=== PATIENT | male | born 1990 | race Caucasian/White ===

== ENCOUNTER 2020-04-09 10:15 | Emergency (ER) | payer SELFPAY ==
[2020-04-09] MEDS ORDERED: Ketorolac 60 MG/2 ML SDV IM ONE (10:29)
[2020-04-09] MEDS ORDERED: Lidocaine 2% Viscous Solution 15 ML Cup PO ONE (10:30)
[2020-04-09] MEDS ORDERED: Benzocaine 20% Topical Spray UD MUCMEM ONE (10:30)
--- NOTE | 2020-04-09 10:38 | EDM.PDOC ---
ED HPI GENERAL MEDICAL PROBLEM - General Chief Complaint: General Stated Complaint: TOOTH ABSCESS Time Seen by Provider: 04/09/20 10:23 Source of Information: Reports: Patient History Limitations: Reports: No Limitations - History of Present Illness INITIAL COMMENTS - FREE TEXT/NARRATIVE: Presents reporting dental pain. Due to financial constraints he has been unable to get in for necessary dental work for his dentition which is in very poor repair. He is now of left lower quadrant dental pain and swelling. Denies fever, chills, constitutional symptoms. Is been eating and drinking. dental Pain Score (Numeric/FACES): 8 - Related Data Allergies Allergy/AdvReac Type Severity Reaction Status Date / Time No Known Allergies Allergy Verified 04/09/20 10:19 Home Meds: Home Meds Clindamycin HCl 1 cap PO TID #30 capsule 04/09/20 [Rx] Past Medical History - Past Health History Medical/Surgical History: Denies Medical/Surgical History Musculoskeletal History: Reports: Other (See Below) Other Musculoskeletal History: Tendonitis, Bulging Disk, Pinched Nerve in Neck - Infectious Disease History Infectious Disease History: Reports: Chicken Pox - Past Surgical History HEENT Surgical History: Reports: Oral Surgery Social & Family History - Family History Family Medical History: Noncontributory - Tobacco Use Smoking Status *Q: Current Every Day Smoker Years of Tobacco use: 15 Packs/Tins Daily: 1 - Alcohol Use Days Per Week of Alcohol Use: 7 Number of Drinks Per Day: 4 Total Drinks Per Week: 28 - Recreational Drug Use Recreational Drug Use: No ED ROS GENERAL - Review of Systems Review Of Systems: Comprehensive ROS is negative, except as noted in HPI. ED EXAM, GENERAL - Physical Exam Exam: See Below Exam Limited By: No Limitations General Appearance: Alert, No Apparent Distress Ears: Normal External Exam Nose: Normal Inspection Throat/Mouth: Other (Patient with all teeth rotted to the gums, blackened, some missing cracked and broken. Left lower quadrant jaw swelling.) Head: Atraumatic, Normocephalic Neck: Normal Inspection. No: Lymphadenopathy (L), Lymphadenopathy (R) Respiratory/Chest: No Respiratory Distress, Lungs Clear, Normal Breath Sounds Cardiovascular: Regular Rate, Rhythm, No Murmur Extremities: Normal Inspection Neurological: Alert, Oriented Psychiatric: Normal Affect, Normal Mood Skin Exam: Warm, Dry, Intact, Normal Color, No Rash Course - Vital Signs Last Recorded V/S: Last Vital Signs Temp 36.4 C 04/09/20 10:17 Pulse 104 H 04/09/20 10:17 Resp 18 04/09/20 10:17 BP 151/101 H 04/09/20 10:17 Pulse Ox 97 04/09/20 10:17 - Orders/Labs/Meds Meds: Medications Discontinued Medications Generic Name Dose Route Start Last Admin Trade Name Torsten PRN Reason Stop Dose Admin Benzocaine 2 each 04/09/20 10:30 Hurricaine One 20% MUCMEM 04/09/20 10:31 ONETIME ONE Ketorolac Tromethamine 60 mg 04/09/20 10:29 Toradol IM 04/09/20 10:30 ONETIME ONE Lidocaine HCl 15 ml 04/09/20 10:30 Xylocaine 2% Viscous PO 04/09/20 10:31 ONETIME ONE Departure - Departure Time of Disposition: 10:35 Disposition: Home, Self-Care 01 Condition: Good Clinical Impression: Dental abscess - Discharge Information Prescriptions: Clindamycin HCl 1 cap PO TID #30 capsule Additional Instructions: The following information is given to patients seen in the emergency departm ent who are being discharged to home. This information is to outline your options for follow-up care. We provide all patients seen in our emergency department with a follow-up referral. The need for follow-up, as well as the timing and circumstances, are variable depending upon the specifics of your emergency department visit. If you don't have a primary care physician on staff, we will provide you with a referral. We always advise you to contact your personal physician following an emergency department visit to inform them of the circumstance of the visit and for follow-up with them and/or the need for any referrals to a consulting specialist. The emergency department will also refer you to a specialist when appropriate. This referral assures that you have the opportunity for follow-up care with a specialist. All of these measure are taken in an effort to provide you with optimal care, which includes your follow-up. Under all circumstances we always encourage you to contact your private physician who remains a resource for coordinating your care. When calling for follow-up care, please make the office aware that this follow-up is from your recent emergency room visit. If for any reason you are refused follow-up, please contact the [facility] Emergency Department at and asked to speak to the emergency department charge nurse. 1. Follow-up with dentist as soon as possible for definitive management 2. Dental balls: Place 1 ball over affected tooth and gently bite down for 10 minutes every 2 hours 3. Aleve 2 tabs a.m. and p.m. or ibuprofen 2-3 tabs 3 times daily as needed for pain 4. Clindamycin 3 times daily start immediately after picking up from the pharmacy Sepsis Event Note (ED) - Evaluation Sepsis Screening Result: No Definite Risk - Focused Exam Vital Signs: Vital Signs Temp Pulse Resp BP Pulse Ox 04/09/20 10:17 36.4 C 104 H 18 151/101 H 97
== END 2020-04-09 11:00 | disposition home or self-care (01) ==
LOC: MW.ED 10:15
DX: K04.7 Periapical abscess without sinus (principal); F17.210 Nicotine dependence, cigarettes, uncomplicated
CPT/HCPCS: 96372; 99283; A9270; J1885; 99282

== ENCOUNTER 2020-12-02 04:36 | Inpatient (IN) | payer SELFPAY ==
--- NOTE | 2020-12-02 04:49 | EDM.PDOC ---
ED HPI GENERAL MEDICAL PROBLEM - General Stated Complaint: CHEST PAIN Time Seen by Provider: 12/02/20 04:39 - History of Present Illness INITIAL COMMENTS - FREE TEXT/NARRATIVE: History of present illness: [] This 30-year-old male who is bothered by chronic indigestion and takes Prilosec almost every day reports that suddenly last night he had a severe sharp pain in his abdomen that radiates up into his anterior chest. The pain is associated with nausea and vomiting. He had 3 loose stools that are dark. The vomitus was yellow liquid. Patient's pain comes and goes. It is 10 out of 10 in severity at rest and then gets worse intermittently. Nothing makes it better or worse. It is associated with mild diaphoresis nausea and vomiting. The patient prefers not to get narcotic medicine because after neck injuries he actually had to work hard to get himself off of the painkillers. Review of systems: As per history of present illness and below otherwise all systems reviewed and negative. Past medical history: As per history of present illness and as reviewed below otherwise noncontributory. Surgical history: As per history of present illness and as reviewed below otherwise noncontributory. Social history: No reported history of drug or alcohol abuse. Family history: As per history of present illness and as reviewed below otherwise noncontributory. Physical exam: Constitutional - well developed, well-nourished and in no acute distress HEENT - normocephalic, no evidence of trauma - external nose and mouth normal - no mass in neck and no JVD - mucosae moist EYES - full EOM, PERRL, no icterus - no evidence of inflammation, injection, or drainage Respiratory - no respiratory distress, equal bilateral expansion, lungs clear to auscultation and no abnormal lung sounds Cardiovascular - Regular Rhythm with S1 and S2 appreciated and no murmur, gallop or rub. GI - abdomen soft without distension or organomegaly - normal bowel sounds - tender and guards in epigastrium but no rebound Musculoskeletal no gross deformity of long bones or joints - no tenderness, swelling or edema Neurologic - Alert and oriented times four - CN II-XII grossly intact - motor sensory and coordination symmetrically normal Psychiatric - appropriate mood and affect with normal thought content Hematologic - No petechiae or purpura - mucosa appropriate color and sclera not pale - normal nail bed color and refill Integument - no rash or evidence of trauma - normal turgor Diagnostics: [] Therapeutics: [] Impression: [] Plan: [] Definitive disposition and diagnosis as appropriate pending reevaluation and review of above. Abdominal Pain Score (Numeric/FACES): 8 - Related Data Allergies Allergy/AdvReac Type Severity Reaction Status Date / Time No Known Allergies Allergy Verified 12/02/20 05:32 Home Meds: Home Meds . [No Known Home Meds] 12/02/20 [History] Past Medical History - Past Health History Medical/Surgical History: Denies Medical/Surgical History Musculoskeletal History: Reports: Other (See Below) Other Musculoskeletal History: Tendonitis, Bulging Disk, Pinched Nerve in Neck - Infectious Disease History Infectious Disease History: Reports: Chicken Pox - Past Surgical History HEENT Surgical History: Reports: Oral Surgery Social & Family History - Family History Family Medical History: No Pertinent Family History ED ROS GENERAL - Review of Systems Review Of Systems: Comprehensive ROS is negative, except as noted in HPI. ED EXAM, GENERAL - Physical Exam Exam: See Below Free Text/Narrative:: My physical exam is in the HPI #1 Interpretation EKG Interpretation Comments: EKG sinus tachycardia heart rate 105. Nonspecific ST changes. [place] is 83 [place] 159 9 prolonged QT interval at 484. No prior for comparison impression no obvious injury Course - Vital Signs Text/Narrative:: 5:53 AM the patient suffering a great deal. He has severe pain in the epigastrium. Labs indicate possible common duct obstruction. 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 The patient listen me talk about possible platelet inhibition with Toradol and because he is in such severe pain and has been off of painkillers long that he will not have a severe physical dependence he decided to allow me to give him narcotic pain medicine while we finish the evaluation and decide if he can be admitted here transferred to [place] for ERCP. Case discussed with Dr. Edwards and patient admitted Last Recorded V/S: Last Vital Signs Temp 36.7 C 12/02/20 04:40 Pulse 95 12/02/20 05:55 Resp 18 12/02/20 05:55 BP 158/109 H 12/02/20 05:55 Pulse Ox 97 12/02/20 05:55 - Orders/Labs/Meds Orders: Active Orders 24 hr Category Date Time Status EKG Documentation Completion [RC] AM Care 12/02/20 04:57 Active Abdomen Ltd [US] Stat Exams 12/02/20 05:39 Ordered CORONAVIRUS COVID-19 NIK [MOLEC] Stat Lab 12/02/20 06:08 Ordered CULTURE BLOOD [BC] Stat Lab 12/02/20 05:55 Received CULTURE BLOOD [BC] Stat Lab 12/02/20 06:05 Received Sodium Chloride 0.9% [Normal Saline] 1,000 ml Med 12/02/20 06:43 Ordered IV .Bolus Sodium Chloride 0.9% [Saline Flush] Med 12/02/20 04:57 Active 10 ml FLUSH ASDIRECTED PRN Sodium Chloride 0.9% [Saline Flush] Med 12/02/20 04:57 Active 2.5 ml FLUSH ASDIRECTED PRN Blood Culture x2 Reflex Set [OM.PC] Stat Oth 12/02/20 05:41 Ordered Saline Lock Insert [OM.PC] Stat Oth 12/02/20 04:57 Ordered Medication Orders Sodium Chloride (Normal Saline) 1,000 mls @ 1,000 mls/hr IV .Bolus ONE Stop: 12/02/20 07:42 Sodium Chloride (Sodium Chloride 0.9% 10 Ml Syringe) 10 ml FLUSH ASDIRECTED PRN PRN Reason: Keep Vein Open Sodium Chloride (Sodium Chloride 0.9% 2.5 Ml Syringe) 2.5 ml FLUSH ASDIRECTED PRN PRN Reason: Keep Vein Open Labs: Laboratory Tests 12/02/20 12/02/20 12/02/20 Range/Units 04:45 04:45 06:05 WBC 19.32 H (4.0-11.0) K/uL RBC 5.13 (4.50-5.90) M/uL Hgb 19.1 H (13.0-17.0) g/dL Hct 53.3 H (38.0-50.0) % MCV 103.9 H (80.0-98.0) fL MCH 37.2 H (27.0-32.0) pg MCHC 35.8 (31.0-37.0) g/dL RDW Std Deviation 55.9 (28.0-62.0) fl RDW Coeff of Kristina 15 (11.0-15.0) % Plt Count 311 (150-400) K/uL MPV 10.80 (7.40-12.00) fL Neut % (Auto) 86.9 H (48.0-80.0) % Lymph % (Auto) 7.0 L (16.0-40.0) % [place] % (Auto) 5.7 (0.0-15.0) % Eos % (Auto) 0.1 (0.0-7.0) % Baso % (Auto) 0.3 (0.0-1.5) % Neut # (Auto) 16.8 H (1.4-5.7) K/uL Lymph # (Auto) 1.4 (0.6-2.4) K/uL [place] # (Auto) 1.1 H (0.0-0.8) K/uL Eos # (Auto) 0.0 (0.0-0.7) K/uL Baso # (Auto) 0.1 (0.0-0.1) K/uL Nucleated RBC % 0.0 /100WBC Nucleated RBCs # 0 K/uL Lactate 3.6 H* (0.20-2.00) mmol/L Sodium 135 L (136-148) mmol/L Potassium 4.0 (3.5-5.1) mmol/L Chloride 96 L (98-107) mmol/L Carbon Dioxide 25.4 (21.0-32.0) mmol/L BUN 5 L (7.0-18.0) mg/dL Creatinine 1.3 (0.8-1.3) mg/dL Est Cr Clr Drug Dosing TNP Estimated GFR (MDRD) > 60.0 ml/min Glucose 171 H (74-106) mg/dL Calcium 8.8 (8.5-10.1) mg/dL Total Bilirubin 1.8 H (0.2-1.0) mg/dL AST 102 H (15-37) IU/L ALT 107 H (14-63) IU/L Alkaline Phosphatase 115 (46-116) U/L Troponin I < 0.050 (0.000-0.056) ng/mL Total Protein 8.0 (6.4-8.2) g/dL Albumin 3.9 (3.4-5.0) g/dL Globulin 4.1 H (2.6-4.0) g/dL Albumin/Globulin Ratio 1.0 (0.9-1.6) Lipase 5193 H (73-393) U/L Meds: Medications Generic Name Dose Route Start Last Admin Trade Name Freq PRN Reason Stop Dose Admin Sodium Chloride 1,000 mls @ 1,000 mls/hr 12/02/20 06:43 Normal Saline IV 12/02/20 07:42 .Bolus ONE Sodium Chloride 10 ml 12/02/20 04:57 Sodium Chloride 0.9% 10 Ml Syringe FLUSH ASDIRECTED PRN Keep Vein Open Sodium Chloride 2.5 ml 12/02/20 04:57 Sodium Chloride 0.9% 2.5 Ml Syringe FLUSH ASDIRECTED PRN Keep Vein Open Discontinued Medications Generic Name Dose Route Start Last Admin Trade Name Freq PRN Reason Stop Dose Admin Hydromorphone HCl 1 mg 12/02/20 05:52 12/02/20 05:57 Hydromorphone 1 Mg/Ml Syringe IVPUSH 12/02/20 05:53 1 mg ONETIME ONE Administration Pantoprazole Sodium 40 mg/ 10 mls @ 300 mls/hr 12/02/20 04:57 12/02/20 05:06 Sodium Chloride IV 12/02/20 04:58 300 mls/hr NOW ONE Administration Cefoxitin Sodium 2 gm/ Sodium 100 mls @ 200 mls/hr 12/02/20 05:41 12/02/20 05:46 Chloride IV 12/02/20 06:10 Not Given ONETIME ONE Sodium Chloride 1,000 mls @ 1,000 mls/hr 12/02/20 05:42 12/02/20 05:53 Normal Saline IV 12/02/20 06:41 1,000 mls/hr .Bolus ONE Administration Cefoxitin Sodium 2 gm/ Premix 50 mls @ 100 mls/hr 12/02/20 05:46 12/02/20 05:54 IV 12/02/20 06:15 100 mls/hr ONETIME ONE Administration Ondansetron HCl 4 mg 12/02/20 04:57 12/02/20 05:05 Ondansetron 4 Mg/2 Ml Sdv IVPUSH 12/02/20 04:58 4 mg ONETIME ONE Administration Ondansetron HCl 4 mg 12/02/20 05:52 Ondansetron 4 Mg/2 Ml Sdv IVPUSH 12/02/20 05:53 ONETIME ONE Departure - Departure Time of Disposition: 06:46 Disposition: Admitted As Inpatient 64 Condition: Fair Clinical Impression: Acute pancreatitis - Discharge Information Referrals: PCP,None [Primary Care Provider] - Sepsis Event Note (ED) - Focused Exam Vital Signs: Vital Signs Temp Pulse Resp BP Pulse Ox 12/02/20 05:55 95 18 158/109 H 97 12/02/20 04:40 36.7 C 113 H 18 159/113 H 97 - My Orders Last 24 Hours: My Active Orders 12/02/20 04:57 EKG Documentation Completion [RC] AM Sodium Chloride 0.9% [Saline Flush] 10 ml FLUSH ASDIRECTED PRN Sodium Chloride 0.9% [Saline Flush] 2.5 ml FLUSH ASDIRECTED PRN Saline Lock Insert [OM.PC] Stat 12/02/20 05:39 Abdomen Ltd [US] Stat 12/02/20 05:41 Blood Culture x2 Reflex Set [OM.PC] Stat 12/02/20 05:55 CULTURE BLOOD [BC] Stat 12/02/20 06:05 CULTURE BLOOD [BC] Stat 12/02/20 06:08 CORONAVIRUS COVID-19 NIK [MOLEC] Stat 12/02/20 06:43 Sodium Chloride 0.9% [Normal Saline] 1,000 ml IV .Bolus - Assessment/Plan Last 24 Hours: My Active Orders 12/02/20 04:57 EKG Documentation Completion [RC] AM Sodium Chloride 0.9% [Saline Flush] 10 ml FLUSH ASDIRECTED PRN Sodium Chloride 0.9% [Saline Flush] 2.5 ml FLUSH ASDIRECTED PRN Saline Lock Insert [OM.PC] Stat 12/02/20 05:39 Abdomen Ltd [US] Stat 12/02/20 05:41 Blood Culture x2 Reflex Set [OM.PC] Stat 12/02/20 05:55 CULTURE BLOOD [BC] Stat 12/02/20 06:05 CULTURE BLOOD [BC] Stat 12/02/20 06:08 CORONAVIRUS COVID-19 NIK [MOLEC] Stat 12/02/20 06:43 Sodium Chloride 0.9% [Normal Saline] 1,000 ml IV .Bolus
[2020-12-02] MEDS ORDERED: Sodium Chloride 0.9% 10 ML Syringe FLUSH PRN (04:57)
[2020-12-02] MEDS ORDERED: Pantoprazole 40 MG in Sodium Chloride 0.9% 10 ML IV ONE (04:57)
[2020-12-02] MEDS ORDERED: Sodium Chloride 0.9% 2.5 ML Syringe FLUSH PRN (04:57)
[2020-12-02] MEDS ORDERED: Ondansetron 4 MG/2 ML SDV IVPUSH ONE ×2 (04:57→05:52)
[2020-12-02 05:25] LABS: BLOOD UREA NITROGEN,BUN 5 mg/dL (7.0-18.0); CARBON DIOXIDE,CO2 25.4 mmol/L (21.0-32.0); CHLORIDE,CL 96 mmol/L (98-107); GLUCOSE RANDOM 171 mg/dL (74-106); SODIUM,NA 135 mmol/L (136-148)
[2020-12-02 05:38] LABS: LIPASE 5193 U/L (73-393)
[2020-12-02] MEDS ORDERED: cefOXitin 2 GM in Sodium Chloride 0.9% 100 ML IV ONE (05:41)
[2020-12-02] MEDS ORDERED: Sodium Chloride 0.9% 1,000 ML IV ONE ×2 (05:42→06:43)
[2020-12-02] MEDS ORDERED: cefOXitin 2 GM in Premix Bag 1 BAG IV ONE (05:46)
[2020-12-02] MEDS ORDERED: HYDROmorphone 1 MG/ML Syringe IVPUSH ONE ×3 (05:52→13:35)
--- NOTE | 2020-12-02 06:38 | CR ---
Indication: Epigastric and chest pain Technique: Chest 1 view Comparison: None Findings/Impression: Cardiovascular and mediastinum: Heart size and vasculature are normal in caliber and appearance. Mediastinum is within normal limits. Lungs and pleural space: Lungs are clear. No sign of infiltrate or mass. No sign of pleural effusion. No pneumothorax. Bones and soft tissues: No significant findings. Dictated by Lance Jenkins MD @ Dec 02 2020 6:34AM Signed by Dr. Lance Jenkins @ Dec 02 2020 6:36AM
--- NOTE | 2020-12-02 07:26 | US ---
INDICATION: Elevated liver function tests and lipase with pain. TECHNIQUE: Ultrasound abdomen limited. Sonographic images of the right upper quadrant were obtained using ballesteros-scale and color Doppler images. COMPARISON: None FINDINGS: Liver: Normal in size. Diffusely echogenic consistent with fatty infiltration. Probable area of focal fatty sparing in the left lobe. No masses. No intrahepatic biliary dilatation. Gallbladder: No stones or sludge. Normal wall thickness. No pericholecystic fluid. Common bile duct: 5 mm. Pancreas: Not well visualized secondary to bowel gas. Right kidney: Normal in size. Normal echotexture and cortex. No suspicious masses, stones, or hydronephrosis. Vasculature: Proximal abdominal aorta and IVC are normal. IMPRESSION: Hepatic steatosis is present. Pancreas is not visualized. Remainder of the exam is unremarkable. Dictated by Javier Friedman MD @ Dec 02 2020 7:22AM Signed by Dr. Javier Friedman @ Dec 02 2020 7:25AM
[2020-12-02] MEDS ORDERED: Iopamidol 755 MG/ML 500 ML Multipack Bottle IVPUSH STA (07:45)
--- NOTE | 2020-12-02 08:23 | CT ---
INDICATION: Acute pancreatitis. TECHNIQUE: CT abdomen and pelvis acquired with 100 cc Isovue 370 IV contrast. COMPARISON: None. FINDINGS: Lower chest: Unremarkable. Liver: Enlarged measuring up to 26 cm in greatest dimension. Diffuse severe fatty infiltration. No focal lesion. Gallbladder and bile ducts: Unremarkable. No stones or inflammation. No biliary dilatation. Pancreas: Moderate to severe peripancreatic edema/inflammation. No sign of abscess or pseudocyst. No focal pancreatic lesion. Spleen: Unremarkable. Normal in size. No masses. Adrenal glands: Unremarkable. No nodules. Kidneys: Unremarkable. No masses, stones, or hydronephrosis. GI tract: Unremarkable. Normal in caliber. No sign of mass or inflammation. Normal appendix. Vasculature: Unremarkable. Mesenteric arteries are patent. Lymph nodes: No lymphadenopathy. Omentum/Peritoneum/Abdominal Wall: Unremarkable. No sign of mass or infiltration. No free air or significant free fluid. Pelvis: Mild free fluid. No free air. Bones: Unremarkable for age. IMPRESSION: 1. Acute pancreatitis with moderate to severe peripancreatic edema/inflammation. No other complications. 2. Severe hepatomegaly and hepatic steatosis. 3. Unremarkable gallbladder and biliary tree. 4. Remainder of the exam is unremarkable. Please note that all CT scans at this facility use dose modulation, iterative reconstruction, and/or weight-based dosing when appropriate to reduce radiation dose to as low as reasonably achievable. Dictated by Javier Friedman MD @ Dec 02 2020 8:13AM Signed by Dr. Javier Friedman @ Dec 02 2020 8:20AM
[2020-12-02] MEDS ORDERED: Lactated Ringers 1,000 ML IV ONE ×2 (09:46→10:10)
--- NOTE | 2020-12-02 09:46 | PCM.HP.2 ---
H&P History of Present Illness - General Date of Service: 12/02/20 Admit Problem/Dx: Admission Diagnosis/Problem Admission Diagnosis/Problem Pancreatitis Source of Information: Patient History Limitations: Reports: No Limitations - History of Present Illness Initial Comments - Free Text/Narative: This 30-year-old male with past medical history of opioid addiction, alcohol a buse presented to the ER with history of epigastric pain that started 12/01/2020. He reports that around noon or so he started having significant epigastric pain that radiated to his left chest into his back. He had 3 loose bowel movements prior to this and then had significant nausea and vomiting after. Emesis not black or bloody in color it is yellow in color. He reports he is never had something like this in the past denies any fevers chills chest pain or shortness of breath. He reports his abdomen is distended and feels quite bloated. He denies any black or bloody bowel movements. He denies any dysuria. He reports that he smokes tobacco at work but then chews at home. He reports he drinks daily drinking anywhere from a pint to a pint and 1/2+ a few beers. He denies alcohol withdrawal seizures and no tremors when he stops drinking. He denies any recreational drug use now. In the ER leukocytosis noted at 19,000 hematocrit 53.3 hemoglobin 19.1 platelets 311,000. Lactic acid elevated at 3.6, repeat 3.2 after IV fluids. Heart rate and blood pressure improved with IV fluid resuscitation. Sodium 135 chloride 96 BUN 5 creatinine 1.3 glucose elevated at 171. Bilirubin 1.8 AST 102 ALT 107 alk phos 115 troponin is negative. Lipid panel added on triglycerides 289 choleste rol total 218 LDL 134 HDL 26. Lipase 5193. Covid swab negative in the ER chest x-ray was obtained which was negative abdominal ultrasound revealed hepatic steatosis pancreas not visualized otherwise exam negative. CT of the abdomen was then obtained which revealed enlarged liver measuring up to 26 cm at the greatest dimension diffuse fatty infiltration. No focal lesion gallbladder unremarkable pancreas shows moderate to severe peripancreatic edema and inflammation no sign of pseudocyst or abscess. No pancreatic lesion otherwise remainder of exam is unremarkable. He was given 2 L normal saline while in the ER along with Dilaudid Protonix cefoxitin. He will be admitted inpatient for acute alcoholic pancreatitis. Abdominal Pain Score (Numeric/FACES): 8 - Related Data Allergies/Adverse Reactions: Allergies Allergy/AdvReac Type Severity Reaction Status Date / Time No Known Allergies Allergy Verified 12/02/20 05:32 Home Medications: Home Meds . [No Known Home Meds] 12/02/20 [History] Past Medical History - Past Health History Medical/Surgical History: Denies Medical/Surgical History Cardiovascular History: Reports: None. Denies: Afib, Blood Clots/VTE/DVT, CAD, Hypertension, [place] Respiratory History: Reports: None. Denies: Asthma, COPD Gastrointestinal History: Reports: Fatty Liver. Denies: Bowel Obstruction, GERD, GI Bleed Musculoskeletal History: Reports: Other (See Below) Other Musculoskeletal History: Tendonitis, Bulging Disk, Pinched Nerve in Neck Neurological History: Reports: None. Denies: CVA, TIA Psychiatric History: Reports: Addiction (History of opioid addiction and alcohol abuse) Endocrine/Metabolic History: Reports: Obesity/BMI 30+. Denies: Diabetes, Type II - Infectious Disease History Infectious Disease History: Reports: Chicken Pox - Past Surgical History HEENT Surgical History: Reports: Oral Surgery Other HEENT Surgeries/Procedures: wisdom teeth Social & Family History - Family History Family Medical History: No Pertinent Family History - Tobacco Use Tobacco Use Status *Q: Light Tobacco User Tobacco Use Within Last Twelve Months: Cigarettes, Smokeless Tobacco - Caffeine Use Caffeine Use: Reports: Coffee, Energy Drinks - Alcohol Use Alcohol Use History: Yes Days Per Week of Alcohol Use: 7 Number of Drinks Per Day: 14 Total Drinks Per Week: 98 Alcohol Use Frequency: Daily - Recreational Drug Use Recreational Drug Use: No - Living Situation & Occupation Living situation: Reports: Occupation: Employed H&P Review of Systems - Review of Systems: Review Of Systems: See Below General: Reports: Malaise. Denies: Fever, Chills HEENT: Reports: No Symptoms. Denies: Headaches, Sinus Congestion, Sore Throat Pulmonary: Reports: No Symptoms. Denies: Shortness of Breath Cardiovascular: Denies: Chest Pain Gastrointestinal: Reports: Abdominal Pain (radiates to chest and back), Distension, Flatus, Nausea, Vomiting. Denies: Black Stool, Bloody Stool Genitourinary: Reports: No Symptoms. Denies: Dysuria, Frequency, Burning Skin: Reports: No Symptoms Psychiatric: Reports: No Symptoms Neurological: Reports: No Symptoms Hematologic/Lymphatic: Reports: No Symptoms Immunologic: Reports: No Symptoms Exam - Exam Exam: See Below - Vital Signs Vital Signs: Last Vital Signs Temp 98.1 F 12/02/20 04:40 Pulse 99 12/02/20 07:59 Resp 18 12/02/20 07:59 BP 177/122 H 12/02/20 07:59 Pulse Ox 98 12/02/20 07:59 Weight: 99.79 kg - Exam Quality Assessment: DVT Prophylaxis. No: Supplemental Oxygen General: Alert, Oriented, Cooperative, Mild Distress (Having 7 out of 10 abdominal pain CKD and cannot get comfortable.) HEENT: Conjunctiva Clear, Mucosa Moist & [place], Posterior Pharynx Clear Neck: Supple, Trachea Midline Lungs: Clear to Auscultation, Normal Respiratory Effort Cardiovascular: Regular Rhythm, Normal S1, Normal S2, Tachycardia. No: Systolic Murmur GI/Abdominal Exam: Soft, Distended, Tender (Epigastric tenderness some). No: Normal Bowel Sounds (Hypoactive) Back Exam: Normal Inspection, Full Range of Motion Extremities: Normal Inspection, Normal Range of Motion, Non-Tender, No Pedal Edema Skin: Warm, Dry Neuro Extensive - Mental Status: Alert, Oriented x3 Neuro Extensive - Motor, Sensory, Reflexes: CN II-XII Intact Psychiatric: Alert, Normal Affect, Normal Mood - Patient Data Lab Results Last 24 hrs: Laboratory Results - last 24 hr 12/02/20 12/02/20 12/02/20 Range/Units 04:45 04:45 06:05 WBC 19.32 H (4.0-11.0) K/uL RBC 5.13 (4.50-5.90) M/uL Hgb 19.1 H (13.0-17.0) g/dL Hct 53.3 H (38.0-50.0) % MCV 103.9 H (80.0-98.0) fL MCH 37.2 H (27.0-32.0) pg MCHC 35.8 (31.0-37.0) g/dL RDW Std Deviation 55.9 (28.0-62.0) fl RDW Coeff of Kristina 15 (11.0-15.0) % Plt Count 311 (150-400) K/uL MPV 10.80 (7.40-12.00) fL Neut % (Auto) 86.9 H (48.0-80.0) % Lymph % (Auto) 7.0 L (16.0-40.0) % [place] % (Auto) 5.7 (0.0-15.0) % Eos % (Auto) 0.1 (0.0-7.0) % Baso % (Auto) 0.3 (0.0-1.5) % Neut # (Auto) 16.8 H (1.4-5.7) K/uL Lymph # (Auto) 1.4 (0.6-2.4) K/uL [place] # (Auto) 1.1 H (0.0-0.8) K/uL Eos # (Auto) 0.0 (0.0-0.7) K/uL Baso # (Auto) 0.1 (0.0-0.1) K/uL Nucleated RBC % 0.0 /100WBC Nucleated RBCs # 0 K/uL Lactate 3.6 H* (0.20-2.00) mmol/L Sodium 135 L (136-148) mmol/L Potassium 4.0 (3.5-5.1) mmol/L Chloride 96 L (98-107) mmol/L Carbon Dioxide 25.4 (21.0-32.0) mmol/L BUN 5 L (7.0-18.0) mg/dL Creatinine 1.3 (0.8-1.3) mg/dL Est Cr Clr Drug Dosing TNP Estimated GFR (MDRD) > 60.0 ml/min Glucose 171 H (74-106) mg/dL Calcium 8.8 (8.5-10.1) mg/dL Total Bilirubin 1.8 H (0.2-1.0) mg/dL AST 102 H (15-37) IU/L ALT 107 H (14-63) IU/L Alkaline Phosphatase 115 (46-116) U/L Troponin I < 0.050 (0.000-0.056) ng/mL Total Protein 8.0 (6.4-8.2) g/dL Albumin 3.9 (3.4-5.0) g/dL Globulin 4.1 H (2.6-4.0) g/dL Albumin/Globulin Ratio 1.0 (0.9-1.6) Lipase 5193 H (73-393) U/L SARS-CoV-2 RNA (NIK) (NEGATIVE) 12/02/20 12/02/20 Range/Units 06:40 09:01 WBC (4.0-11.0) K/uL RBC (4.50-5.90) M/uL Hgb (13.0-17.0) g/dL Hct (38.0-50.0) % MCV (80.0-98.0) fL MCH (27.0-32.0) pg MCHC (31.0-37.0) g/dL RDW Std Deviation (28.0-62.0) fl RDW Coeff of Kristina (11.0-15.0) % Plt Count (150-400) K/uL MPV (7.40-12.00) fL Neut % (Auto) (48.0-80.0) % Lymph % (Auto) (16.0-40.0) % [place] % (Auto) (0.0-15.0) % Eos % (Auto) (0.0-7.0) % Baso % (Auto) (0.0-1.5) % Neut # (Auto) (1.4-5.7) K/uL Lymph # (Auto) (0.6-2.4) K/uL [place] # (Auto) (0.0-0.8) K/uL Eos # (Auto) (0.0-0.7) K/uL Baso # (Auto) (0.0-0.1) K/uL Nucleated RBC % /100WBC Nucleated RBCs # K/uL Lactate 3.2 H* (0.20-2.00) mmol/L Sodium (136-148) mmol/L Potassium (3.5-5.1) mmol/L Chloride (98-107) mmol/L Carbon Dioxide (21.0-32.0) mmol/L BUN (7.0-18.0) mg/dL Creatinine (0.8-1.3) mg/dL Est Cr Clr Drug Dosing Estimated GFR (MDRD) ml/min Glucose (74-106) mg/dL Calcium (8.5-10.1) mg/dL Total Bilirubin (0.2-1.0) mg/dL AST (15-37) IU/L ALT (14-63) IU/L Alkaline Phosphatase (46-116) U/L Troponin I (0.000-0.056) ng/mL Total Protein (6.4-8.2) g/dL Albumin (3.4-5.0) g/dL Globulin (2.6-4.0) g/dL Albumin/Globulin Ratio (0.9-1.6) Lipase (73-393) U/L SARS-CoV-2 RNA (NKI) NEGATIVE (NEGATIVE) Result Diagrams: 12/02/20 04:45 12/02/20 04:45 Sepsis Event Note - Evaluation Sepsis Screening Result: No Definite Risk - Focused Exam Vital Signs: Vital Signs Temp Pulse Resp BP Pulse Ox 12/02/20 07:59 99 18 177/122 H 98 12/02/20 05:55 95 18 158/109 H 97 12/02/20 04:40 98.1 F 113 H 18 159/113 H 97 - Problem List (1) Acute alcoholic pancreatitis SNOMED Code(s): 128284939 ICD Code: K85.20 - ALCOHOL INDUCED ACUTE PANCREATITIS WITHOUT NECROSIS OR INFCT Status: Acute Current Visit: Yes (2) Elevated lactic acid level SNOMED Code(s): 0242695 ICD Code: R79.89 - OTHER SPECIFIED ABNORMAL FINDINGS OF BLOOD CHEMISTRY Status: Acute Current Visit: Yes (3) Alcohol abuse SNOMED Code(s): 93255400 ICD Code: F10.10 - ALCOHOL ABUSE, UNCOMPLICATED Status: Chronic Current Visit: Yes (4) Tobacco use SNOMED Code(s): 786725917 ICD Code: Z72.0 - TOBACCO USE Status: Chronic Current Visit: Yes Problem List Initiated/Reviewed/Updated: Yes Orders Last 24hrs: Active Orders 24 hr Category Date Time Status Admission Status [Patient Status] [ADT] Stat ADT 12/02/20 06:48 Active EKG Documentation Completion [RC] AM Care 12/02/20 04:57 Active CULTURE BLOOD [BC] Stat Lab 12/02/20 05:55 Received CULTURE BLOOD [BC] Stat Lab 12/02/20 06:05 Received Lactated Ringers [Ringers, Lactated] 1,000 ml Med 12/02/20 09:46 Ordered IV .BOLUS Sodium Chloride 0.9% [Saline Flush] Med 12/02/20 04:57 Active 10 ml FLUSH ASDIRECTED PRN Sodium Chloride 0.9% [Saline Flush] Med 12/02/20 04:57 Active 2.5 ml FLUSH ASDIRECTED PRN Blood Culture x2 Reflex Set [OM.PC] Stat Oth 12/02/20 05:41 Ordered Saline Lock Insert [OM.PC] Stat Oth 12/02/20 04:57 Ordered Medication Orders Lactated Ringer's (Ringers, Lactated) 1,000 mls @ 999 mls/hr IV .BOLUS ONE Stop: 12/02/20 10:46 Sodium Chloride (Sodium Chloride 0.9% 10 Ml Syringe) 10 ml FLUSH ASDIRECTED PRN PRN Reason: Keep Vein Open Last Admin: 12/02/20 07:55 Dose: 10 ml Documented by: LORETTA Sodium Chloride (Sodium Chloride 0.9% 2.5 Ml Syringe) 2.5 ml FLUSH ASDIRECTED PRN PRN Reason: Keep Vein Open Last Admin: 12/02/20 07:55 Dose: 2.5 ml Documented by: LORETTA Assessment/Plan Comment:: This 30-year-old male admitted with acute alcoholic pancreatitis 1. Acute alcoholic pancreatitis -We will give 2 more liters of LR to equal 4 L. -Continue LR 200 mL/h -Dilaudid for pain control -Protonix daily -Monitor LFTs daily -Counseling on alcohol sobriety. -N.p.o. for now -Elevated lactate likely secondary to acute pancreatitis. Will monitor after further boluses given. -Does not appear to be infectious elevated leukocytosis likely secondary to acute pancreatitis will monitor in a.m. hold off on antibiotics at this point. 2. Alcohol use -Thiamine folic acid daily -CIWAA protocol with Ativan as needed VTE prophylaxis: Heparin GI prophylaxis: Protonix CODE STATUS: Full code Dispo: 2 to 4 days pending improvement. - Mortality Measure Prognosis:: Good
[2020-12-02] MEDS ORDERED: Ondansetron 4 MG/2 ML SDV IVPUSH PRN (10:12)
[2020-12-02] MEDS ORDERED: LORazepam 2 MG/ML SDV IVPUSH PRN (10:22)
[2020-12-02] MEDS: HYDROmorphone 1 MG/ML Syringe IVPUSH PRN ×2 (10:25→12:22)
[2020-12-02] MEDS: Folic Acid 50 MG/10 ML MDV SUBCUT SCH (12:23)
[2020-12-02] MEDS: Thiamine 100 MG in Sodium Chloride 0.9% 100 ML IV SCH (12:24)
[2020-12-02] MEDS: Lactated Ringers 1,000 ML IV SCH ×3 (12:29→22:09)
[2020-12-02] MEDS: Heparin Sodium 5,000 Units/ML Vial SUBCUT SCH ×2 (14:25→22:09)
[2020-12-02] MEDS: HYDROmorphone 2 MG/ML Syringe IVPUSH PRN ×4 (15:48→22:08)
[2020-12-03] MEDS: HYDROmorphone 2 MG/ML Syringe IVPUSH PRN ×12 (00:05→22:29)
[2020-12-03] MEDS: Lactated Ringers 1,000 ML IV SCH ×4 (04:26→23:36)
[2020-12-03] MEDS ORDERED: Pantoprazole 40 MG Vial IV SCH (06:00)
[2020-12-03 06:06] LABS: BLOOD UREA NITROGEN,BUN 8 mg/dL (7.0-18.0); CARBON DIOXIDE,CO2 30.6 mmol/L (21.0-32.0); CHLORIDE,CL 94 mmol/L (98-107); GLUCOSE RANDOM 108 mg/dL (74-106); LIPASE 1480 U/L (73-393); SODIUM,NA 132 mmol/L (136-148)
[2020-12-03] MEDS: Heparin Sodium 5,000 Units/ML Vial SUBCUT SCH ×3 (06:25→22:29)
[2020-12-03] MEDS: Pantoprazole 40 MG in Sodium Chloride 0.9% 10 ML IV SCH (06:26)
[2020-12-03] MEDS: Folic Acid 50 MG/10 ML MDV SUBCUT SCH (08:38)
[2020-12-03] MEDS: Thiamine 100 MG in Sodium Chloride 0.9% 100 ML IV SCH (08:51)
[2020-12-03] MEDS ORDERED: Magnesium Sulfate/Water 2 GM/50 ML Premix Bag IV ONE ×2 (10:27→19:21)
[2020-12-03] MEDS ORDERED: Magnesium Sulfate/Water 2 GM/50 ML BAG IV ONE (10:45)
--- NOTE | 2020-12-03 10:46 | PCM.PN ---
- General Info Date of Service: 12/03/20 - Review of Systems Systems Review Comment:: abdominal pain slightly better, reports bandlike abdominal pain across mid abdomen. denies any fever or shortness of breath - Patient Data Vitals - Most Recent: Last Vital Signs Temp 36.9 C 12/03/20 08:58 Pulse 112 H 12/03/20 08:58 Resp 14 12/03/20 08:58 BP 148/96 H 12/03/20 08:58 Pulse Ox 95 12/03/20 08:58 Weight - Most Recent: 100.244 kg I&O - Last 24 Hours: Intake & Output 12/02/20 12/03/20 12/03/20 22:59 06:59 14:59 Intake Total 4019 3100 Balance 4019 3100 Lab Results Last 24 Hours: Laboratory Results - last 24 hr 12/02/20 12/02/20 12/02/20 Range/Units 04:45 13:10 17:30 WBC (4.0-11.0) K/uL RBC (4.50-5.90) M/uL Hgb (13.0-17.0) g/dL Hct (38.0-50.0) % MCV (80.0-98.0) fL MCH (27.0-32.0) pg MCHC (31.0-37.0) g/dL RDW Std Deviation (28.0-62.0) fl RDW Coeff of Kristina (11.0-15.0) % Plt Count (150-400) K/uL MPV (7.40-12.00) fL Neut % (Auto) (48.0-80.0) % Lymph % (Auto) (16.0-40.0) % [place] % (Auto) (0.0-15.0) % Eos % (Auto) (0.0-7.0) % Baso % (Auto) (0.0-1.5) % Neut # (Auto) (1.4-5.7) K/uL Lymph # (Auto) (0.6-2.4) K/uL [place] # (Auto) (0.0-0.8) K/uL Eos # (Auto) (0.0-0.7) K/uL Baso # (Auto) (0.0-0.1) K/uL Nucleated RBC % /100WBC Nucleated RBCs # K/uL Lactate 3.0 H* 1.8 (0.20-2.00) mmol/L Sodium (136-148) mmol/L Potassium (3.5-5.1) mmol/L Chloride (98-107) mmol/L Carbon Dioxide (21.0-32.0) mmol/L BUN (7.0-18.0) mg/dL Creatinine (0.8-1.3) mg/dL Est Cr Clr Drug Dosing mL/min Estimated GFR (MDRD) ml/min Glucose (74-106) mg/dL Calcium (8.5-10.1) mg/dL Phosphorus (2.6-4.7) mg/dL Magnesium (1.8-2.4) mg/dL Total Bilirubin (0.2-1.0) mg/dL AST (15-37) IU/L ALT (14-63) IU/L Alkaline Phosphatase (46-116) U/L Total Protein (6.4-8.2) g/dL Albumin (3.4-5.0) g/dL Globulin (2.6-4.0) g/dL Albumin/Globulin Ratio (0.9-1.6) Triglycerides 289 H (0-200) mg/dL Cholesterol 218 H (50-200) mg/dL LDL Cholesterol, Calc 134 (60-180) mg/dL VLDL Cholesterol 57 H (5-55) mg/dL HDL Cholesterol 26 L (40-60) mg/dL Cholesterol/HDL Ratio 8.4 H (3.3-6.0) Lipase (73-393) U/L 12/03/20 12/03/20 Range/Units 04:45 04:45 WBC 16.41 H (4.0-11.0) K/uL RBC 4.15 L (4.50-5.90) M/uL Hgb 15.3 (13.0-17.0) g/dL Hct 45.4 (38.0-50.0) % MCV 109.4 H (80.0-98.0) fL MCH 36.9 H (27.0-32.0) pg MCHC 33.7 (31.0-37.0) g/dL RDW Std Deviation 58.4 (28.0-62.0) fl RDW Coeff of Kristina 15 (11.0-15.0) % Plt Count 206 (150-400) K/uL MPV 11.50 (7.40-12.00) fL Neut % (Auto) 82.4 H (48.0-80.0) % Lymph % (Auto) 9.6 L (16.0-40.0) % [place] % (Auto) 6.7 (0.0-15.0) % Eos % (Auto) 1.1 (0.0-7.0) % Baso % (Auto) 0.2 (0.0-1.5) % Neut # (Auto) 13.5 H (1.4-5.7) K/uL Lymph # (Auto) 1.6 (0.6-2.4) K/uL [place] # (Auto) 1.1 H (0.0-0.8) K/uL Eos # (Auto) 0.2 (0.0-0.7) K/uL Baso # (Auto) 0.0 (0.0-0.1) K/uL Nucleated RBC % 0.0 /100WBC Nucleated RBCs # 0 K/uL Lactate (0.20-2.00) mmol/L Sodium 132 L (136-148) mmol/L Potassium 4.0 (3.5-5.1) mmol/L Chloride 94 L (98-107) mmol/L Carbon Dioxide 30.6 (21.0-32.0) mmol/L BUN 8 (7.0-18.0) mg/dL Creatinine 1.0 (0.8-1.3) mg/dL Est Cr Clr Drug Dosing 106.05 mL/min Estimated GFR (MDRD) > 60.0 ml/min Glucose 108 H (74-106) mg/dL Calcium 8.1 L (8.5-10.1) mg/dL Phosphorus 2.6 (2.6-4.7) mg/dL Magnesium 1.1 L (1.8-2.4) mg/dL Total Bilirubin 4.5 H (0.2-1.0) mg/dL AST 81 H (15-37) IU/L ALT 71 H (14-63) IU/L Alkaline Phosphatase 85 (46-116) U/L Total Protein 6.5 (6.4-8.2) g/dL Albumin 2.8 L (3.4-5.0) g/dL Globulin 3.7 (2.6-4.0) g/dL Albumin/Globulin Ratio 0.8 L (0.9-1.6) Triglycerides (0-200) mg/dL Cholesterol (50-200) mg/dL LDL Cholesterol, Calc (60-180) mg/dL VLDL Cholesterol (5-55) mg/dL HDL Cholesterol (40-60) mg/dL Cholesterol/HDL Ratio (3.3-6.0) Lipase 1480 H (73-393) U/L Sahil Results Last 24 Hours: Microbiology 12/02/20 06:05 Aerobic Blood Culture - Preliminary Blood - Venous - Lab Draw NO GROWTH AFTER 1 DAY Anaerobic Blood Culture - Preliminary NO GROWTH AFTER 1 DAY 12/02/20 05:55 Aerobic Blood Culture - Preliminary Blood - Venous NO GROWTH AFTER 1 DAY Anaerobic Blood Culture - Preliminary NO GROWTH AFTER 1 DAY Med Orders - Current: Current Medications Folic Acid (Folic Acid 50 Mg/10 Ml Mdv) 1 mg SUBCUT DAILY [facility] Last Admin: 12/03/20 08:38 Dose: 1 mg Documented by: Heparin Sodium (Porcine) (Heparin Sodium 5,000 Units/Ml Vial) 5,000 units SUBCUT Q8H [facility] Last Admin: 12/03/20 06:25 Dose: 5,000 units Documented by: Hydromorphone HCl (Hydromorphone 2 Mg/Ml Syringe) 2 mg IVPUSH Q2H PRN PRN Reason: Pain Last Admin: 12/03/20 10:40 Dose: 2 mg Documented by: Lactated Ringer's (Ringers, Lactated) 1,000 mls @ 200 mls/hr IV Q5H [facility] Last Admin: 12/03/20 08:54 Dose: 200 mls/hr Documented by: Pantoprazole Sodium 40 mg/ (Sodium Chloride) 10 mls @ 300 mls/hr IV Q24H [facility] Last Admin: 12/03/20 06:26 Dose: 300 mls/hr Documented by: Thiamine HCl 100 mg/ Sodium (Chloride) 101 mls @ 202 mls/hr IV DAILY [facility] Last Admin: 12/03/20 08:51 Dose: 202 mls/hr Documented by: Magnesium Sulfate (Magnesium Sulfate In Water 2 Gm/50 Ml) 2 gm in 50 mls @ 50 mls/hr IV ONETIME ONE Stop: 12/03/20 11:44 Lorazepam (Lorazepam 2 Mg/Ml Sdv) 0 mg IVPUSH Q2H PRN; Protocol PRN Reason: [facility] Ondansetron HCl (Ondansetron 4 Mg/2 Ml Sdv) 4 mg IVPUSH Q4H PRN PRN Reason: Nausea Sodium Chloride (Sodium Chloride 0.9% 2.5 Ml Syringe) 2.5 ml FLUSH ASDIRECTED PRN PRN Reason: Keep Vein Open Discontinued Medications Hydromorphone HCl (Hydromorphone 1 Mg/Ml Syringe) 1 mg IVPUSH ONETIME ONE Stop: 12/02/20 05:53 Last Admin: 12/02/20 05:57 Dose: 1 mg Documented by: Hydromorphone HCl (Hydromorphone 1 Mg/Ml Syringe) 1 mg IVPUSH ONETIME ONE Stop: 12/02/20 07:40 Last Admin: 12/02/20 07:54 Dose: 1 mg Documented by: Hydromorphone HCl (Hydromorphone 1 Mg/Ml Syringe) 1 mg IVPUSH Q2H PRN PRN Reason: Pain Last Admin: 12/02/20 12:22 Dose: 1 mg Documented by: Hydromorphone HCl (Hydromorphone 1 Mg/Ml Syringe) 1 mg IVPUSH ONETIME ONE Stop: 12/02/20 13:36 Last Admin: 12/02/20 13:54 Dose: 1 mg Documented by: Pantoprazole Sodium 40 mg/ (Sodium Chloride) 10 mls @ 300 mls/hr IV NOW ONE Stop: 12/02/20 04:58 Last Admin: 12/02/20 05:06 Dose: 300 mls/hr Documented by: Cefoxitin Sodium 2 gm/ Sodium (Chloride) 100 mls @ 200 mls/hr IV ONETIME ONE Stop: 12/02/20 06:10 Last Admin: 12/02/20 05:46 Dose: Not Given Documented by: Sodium Chloride (Normal Saline) 1,000 mls @ 1,000 mls/hr IV .Bolus ONE Stop: 12/02/20 06:41 Last Admin: 12/02/20 05:53 Dose: 1,000 mls/hr Documented by: Cefoxitin Sodium 2 gm/ Premix 50 mls @ 100 mls/hr IV ONETIME ONE Stop: 12/02/20 06:15 Last Admin: 12/02/20 05:54 Dose: 100 mls/hr Documented by: Sodium Chloride (Normal Saline) 1,000 mls @ 1,000 mls/hr IV .Bolus ONE Stop: 12/02/20 07:42 Last Admin: 12/02/20 07:54 Dose: 1,000 mls/hr Documented by: Lactated Ringer's (Ringers, Lactated) 1,000 mls @ 999 mls/hr IV .BOLUS ONE Stop: 12/02/20 10:46 Last Admin: 12/02/20 10:09 Dose: 999 mls/hr Documented by: Lactated Ringer's (Ringers, Lactated) 1,000 mls @ 999 mls/hr IV .BOLUS ONE Stop: 12/02/20 11:10 Last Admin: 12/02/20 11:16 Dose: 999 mls/hr Documented by: Iopamidol (Iopamidol 755 Mg/Ml 500 Ml Multipack Bottle) 100 ml IVPUSH ONETIME STA Stop: 12/02/20 07:46 Last Admin: 12/02/20 07:55 Dose: 100 ml Documented by: Ondansetron HCl (Ondansetron 4 Mg/2 Ml Sdv) 4 mg IVPUSH ONETIME ONE Stop: 12/02/20 04:58 Last Admin: 12/02/20 05:05 Dose: 4 mg Documented by: Ondansetron HCl (Ondansetron 4 Mg/2 Ml Sdv) 4 mg IVPUSH ONETIME ONE Stop: 12/02/20 05:53 Last Admin: 12/02/20 06:47 Dose: Not Given Documented by: Sodium Chloride (Sodium Chloride 0.9% 10 Ml Syringe) 10 ml FLUSH ASDIRECTED PRN PRN Reason: Keep Vein Open Last Admin: 12/02/20 07:55 Dose: 10 ml Documented by: Sodium Chloride (Sodium Chloride 0.9% 2.5 Ml Syringe) 2.5 ml FLUSH ASDIRECTED PRN PRN Reason: Keep Vein Open Last Admin: 12/02/20 07:55 Dose: 2.5 ml Documented by: - Exam General: Alert, Oriented Lungs: Clear to Auscultation, Normal Respiratory Effort Cardiovascular: Regular Rate, Regular Rhythm Extremities: Non-Tender, No Pedal Edema Skin: Warm, Dry, Intact Neurological: No New Focal Deficit - Patient Data Lab Results Last 24 hrs: Laboratory Results - last 24 hr 12/02/20 12/02/20 12/02/20 Range/Units 04:45 13:10 17:30 WBC (4.0-11.0) K/uL RBC (4.50-5.90) M/uL Hgb (13.0-17.0) g/dL Hct (38.0-50.0) % MCV (80.0-98.0) fL MCH (27.0-32.0) pg MCHC (31.0-37.0) g/dL RDW Std Deviation (28.0-62.0) fl RDW Coeff of Kristina (11.0-15.0) % Plt Count (150-400) K/uL MPV (7.40-12.00) fL Neut % (Auto) (48.0-80.0) % Lymph % (Auto) (16.0-40.0) % [place] % (Auto) (0.0-15.0) % Eos % (Auto) (0.0-7.0) % Baso % (Auto) (0.0-1.5) % Neut # (Auto) (1.4-5.7) K/uL Lymph # (Auto) (0.6-2.4) K/uL [place] # (Auto) (0.0-0.8) K/uL Eos # (Auto) (0.0-0.7) K/uL Baso # (Auto) (0.0-0.1) K/uL Nucleated RBC % /100WBC Nucleated RBCs # K/uL Lactate 3.0 H* 1.8 (0.20-2.00) mmol/L Sodium (136-148) mmol/L Potassium (3.5-5.1) mmol/L Chloride (98-107) mmol/L Carbon Dioxide (21.0-32.0) mmol/L BUN (7.0-18.0) mg/dL Creatinine (0.8-1.3) mg/dL Est Cr Clr Drug Dosing mL/min Estimated GFR (MDRD) ml/min Glucose (74-106) mg/dL Calcium (8.5-10.1) mg/dL Phosphorus (2.6-4.7) mg/dL Magnesium (1.8-2.4) mg/dL Total Bilirubin (0.2-1.0) mg/dL AST (15-37) IU/L ALT (14-63) IU/L Alkaline Phosphatase (46-116) U/L Total Protein (6.4-8.2) g/dL Albumin (3.4-5.0) g/dL Globulin (2.6-4.0) g/dL Albumin/Globulin Ratio (0.9-1.6) Triglycerides 289 H (0-200) mg/dL Cholesterol 218 H (50-200) mg/dL LDL Cholesterol, Calc 134 (60-180) mg/dL VLDL Cholesterol 57 H (5-55) mg/dL HDL Cholesterol 26 L (40-60) mg/dL Cholesterol/HDL Ratio 8.4 H (3.3-6.0) Lipase (73-393) U/L 12/03/20 12/03/20 Range/Units 04:45 04:45 WBC 16.41 H (4.0-11.0) K/uL RBC 4.15 L (4.50-5.90) M/uL Hgb 15.3 (13.0-17.0) g/dL Hct 45.4 (38.0-50.0) % MCV 109.4 H (80.0-98.0) fL MCH 36.9 H (27.0-32.0) pg MCHC 33.7 (31.0-37.0) g/dL RDW Std Deviation 58.4 (28.0-62.0) fl RDW Coeff of Kristina 15 (11.0-15.0) % Plt Count 206 (150-400) K/uL MPV 11.50 (7.40-12.00) fL Neut % (Auto) 82.4 H (48.0-80.0) % Lymph % (Auto) 9.6 L (16.0-40.0) % [place] % (Auto) 6.7 (0.0-15.0) % Eos % (Auto) 1.1 (0.0-7.0) % Baso % (Auto) 0.2 (0.0-1.5) % Neut # (Auto) 13.5 H (1.4-5.7) K/uL Lymph # (Auto) 1.6 (0.6-2.4) K/uL [place] # (Auto) 1.1 H (0.0-0.8) K/uL Eos # (Auto) 0.2 (0.0-0.7) K/uL Baso # (Auto) 0.0 (0.0-0.1) K/uL Nucleated RBC % 0.0 /100WBC Nucleated RBCs # 0 K/uL Lactate (0.20-2.00) mmol/L Sodium 132 L (136-148) mmol/L Potassium 4.0 (3.5-5.1) mmol/L Chloride 94 L (98-107) mmol/L Carbon Dioxide 30.6 (21.0-32.0) mmol/L BUN 8 (7.0-18.0) mg/dL Creatinine 1.0 (0.8-1.3) mg/dL Est Cr Clr Drug Dosing 106.05 mL/min Estimated GFR (MDRD) > 60.0 ml/min Glucose 108 H (74-106) mg/dL Calcium 8.1 L (8.5-10.1) mg/dL Phosphorus 2.6 (2.6-4.7) mg/dL Magnesium 1.1 L (1.8-2.4) mg/dL Total Bilirubin 4.5 H (0.2-1.0) mg/dL AST 81 H (15-37) IU/L ALT 71 H (14-63) IU/L Alkaline Phosphatase 85 (46-116) U/L Total Protein 6.5 (6.4-8.2) g/dL Albumin 2.8 L (3.4-5.0) g/dL Globulin 3.7 (2.6-4.0) g/dL Albumin/Globulin Ratio 0.8 L (0.9-1.6) Triglycerides (0-200) mg/dL Cholesterol (50-200) mg/dL LDL Cholesterol, Calc (60-180) mg/dL VLDL Cholesterol (5-55) mg/dL HDL Cholesterol (40-60) mg/dL Cholesterol/HDL Ratio (3.3-6.0) Lipase 1480 H (73-393) U/L Result Diagrams: 12/03/20 04:45 12/03/20 04:45 Sahil Results Last 24 hrs: Microbiology 12/02/20 06:05 Aerobic Blood Culture - Preliminary Blood - Venous - Lab Draw NO GROWTH AFTER 1 DAY Anaerobic Blood Culture - Preliminary NO GROWTH AFTER 1 DAY 12/02/20 05:55 Aerobic Blood Culture - Preliminary Blood - Venous NO GROWTH AFTER 1 DAY Anaerobic Blood Culture - Preliminary NO GROWTH AFTER 1 DAY Sepsis Event Note - Evaluation Sepsis Screening Result: Sepsis Risk - Focused Exam Vital Signs: Vital Signs Temp Pulse Resp BP Pulse Ox 12/03/20 08:58 36.9 C 112 H 14 148/96 H 95 12/03/20 04:30 37.4 C 111 H 14 132/75 93 L 12/03/20 00:07 37.2 C 112 H 14 144/92 H 93 L - Problem List Review Problem List Initiated/Reviewed/Updated: Yes - My Orders Last 24 Hours: My Active Orders 12/03/20 10:45 Magnesium Sulfate/Water [Magnesium Sulfate in Water 2 GM/50 ML] 2 gm in 50 ml IV ONETIME 12/03/20 17:00 BASIC METABOLIC PANEL,BMP [CHEM] Routine MAGNESIUM, RBC [REF] Routine - Plan Plan:: This 30-year-old male admitted with acute alcoholic pancreatitis 1. Acute alcoholic pancreatitis -Continue LR 200 mL/h -Dilaudid for pain control -Protonix daily -Counseling on alcohol sobriety. -N.p.o. for now 2. Alcohol abuse -Thiamine, folic acid daily -[facility] protocol with Ativan as needed VTE prophylaxis: Heparin GI prophylaxis: Protonix CODE STATUS: Full code Dispo: 2 to 4 days pending improvement.
[2020-12-03 17:50] LABS: BLOOD UREA NITROGEN,BUN 10 mg/dL (7.0-18.0); CARBON DIOXIDE,CO2 26.5 mmol/L (21.0-32.0); CHLORIDE,CL 94 mmol/L (98-107); GLUCOSE RANDOM 106 mg/dL (74-106); POTASSIUM,K 3.8 mmol/L (3.5-5.1); SODIUM,NA 129 mmol/L (136-148)
[2020-12-03] MEDS ORDERED: cefTRIAXone 1 GM in Sodium Chloride 0.9% 50 ML IV SCH (19:00)
[2020-12-03] MEDS: cefTRIAXone 1 GM in Premix Bag 1 BAG IV SCH (19:06)
[2020-12-04] MEDS: HYDROmorphone 2 MG/ML Syringe IVPUSH PRN ×12 (00:33→22:27)
[2020-12-04] MEDS: Lactated Ringers 1,000 ML IV SCH ×6 (00:34→23:42)
[2020-12-04 06:08] LABS: BLOOD UREA NITROGEN,BUN 8 mg/dL (7.0-18.0); CARBON DIOXIDE,CO2 27.8 mmol/L (21.0-32.0); CHLORIDE,CL 94 mmol/L (98-107); GLUCOSE RANDOM 84 mg/dL (74-106); SODIUM,NA 129 mmol/L (136-148)
[2020-12-04] MEDS: Heparin Sodium 5,000 Units/ML Vial SUBCUT SCH ×3 (06:25→22:26)
[2020-12-04] MEDS: Pantoprazole 40 MG in Sodium Chloride 0.9% 10 ML IV SCH (06:25)
--- NOTE | 2020-12-04 08:03 | PCM.PN ---
- General Info Date of Service: 12/04/20 Admission Dx/Problem (Free Text): Admission Diagnosis/Problem Admission Diagnosis/Problem Pancreatitis Subjective Update: As abdominal pain. Mainly epigastric that is radiate to back and diffusely lower abdomen. Feels bloated and distended. Passing gas but no bowel movement since admission. Denies nausea or vomiting. Reports he is feeling somewhat hungry but continues to have significant amount of pain needing narcotics. Denies any chest pain or shortness of breath. Denies any hallucination or tremors. Functional Status: Reports: Pain Controlled, Ambulating, Urinating - Review of Systems General: Reports: Weakness, Fatigue. Denies: Fever HEENT: Reports: No Symptoms. Denies: Headaches, Sore Throat, Visual Changes Pulmonary: Reports: No Symptoms. Denies: Shortness of Breath Cardiovascular: Reports: No Symptoms. Denies: Chest Pain Gastrointestinal: Reports: Abdominal Pain, Flatus. Denies: Nausea, Vomiting Genitourinary: Reports: No Symptoms, Burning. Denies: Dysuria, Frequency Musculoskeletal: Reports: No Symptoms Skin: Reports: No Symptoms Neurological: Reports: No Symptoms Psychiatric: Reports: No Symptoms - Patient Data Vitals - Most Recent: Last Vital Signs Temp 98.2 F 12/04/20 04:00 Pulse 105 H 12/04/20 04:00 Resp 16 12/04/20 04:00 BP 152/92 H 12/04/20 04:00 Pulse Ox 93 L 12/04/20 04:00 Weight - Most Recent: 100.244 kg I&O - Last 24 Hours: Intake & Output 12/03/20 12/04/20 12/04/20 22:59 06:59 14:59 Intake Total 2278 1196 Output Total 1650 Balance 2278 -454 Lab Results Last 24 Hours: Laboratory Results - last 24 hr 12/03/20 12/03/20 12/03/20 Range/Units 17:00 17:06 17:29 WBC (4.0-11.0) K/uL RBC (4.50-5.90) M/uL Hgb (13.0-17.0) g/dL Hct (38.0-50.0) % MCV (80.0-98.0) fL MCH (27.0-32.0) pg MCHC (31.0-37.0) g/dL RDW Std Deviation (28.0-62.0) fl RDW Coeff of Kristina (11.0-15.0) % Plt Count (150-400) K/uL MPV (7.40-12.00) fL Neut % (Auto) (48.0-80.0) % Lymph % (Auto) (16.0-40.0) % Bradley % (Auto) (0.0-15.0) % Eos % (Auto) (0.0-7.0) % Baso % (Auto) (0.0-1.5) % Neut # (Auto) (1.4-5.7) K/uL Lymph # (Auto) (0.6-2.4) K/uL Bradley # (Auto) (0.0-0.8) K/uL Eos # (Auto) (0.0-0.7) K/uL Baso # (Auto) (0.0-0.1) K/uL Nucleated RBC % /100WBC Nucleated RBCs # K/uL Sodium 129 L (136-148) mmol/L Potassium 3.8 (3.5-5.1) mmol/L Chloride 94 L (98-107) mmol/L Carbon Dioxide 26.5 (21.0-32.0) mmol/L BUN 10 (7.0-18.0) mg/dL Creatinine 0.9 (0.8-1.3) mg/dL Est Cr Clr Drug Dosing 117.83 mL/min Estimated GFR (MDRD) > 60.0 ml/min Glucose 106 (74-106) mg/dL Calcium 8.1 L (8.5-10.1) mg/dL Phosphorus (2.6-4.7) mg/dL Magnesium 1.6 L (1.8-2.4) mg/dL Total Bilirubin (0.2-1.0) mg/dL AST (15-37) IU/L ALT (14-63) IU/L Alkaline Phosphatase (46-116) U/L Total Protein (6.4-8.2) g/dL Albumin (3.4-5.0) g/dL Globulin (2.6-4.0) g/dL Albumin/Globulin Ratio (0.9-1.6) Urine Color ORANGE Urine Appearance CLEAR Urine pH 5.5 (5.0-8.0) Ur Specific [place] >= 1.030 (1.001-1.035) Urine Protein 100 H (NEGATIVE) mg/dL Urine Glucose (UA) NEGATIVE (NEGATIVE) mg/dL Urine Ketones 40 H (NEGATIVE) mg/dL Urine Occult Blood MODERATE H (NEGATIVE) Urine Nitrite POSITIVE H (NEGATIVE) Urine Bilirubin MODERATE H (NEGATIVE) Urine Ictotest POSITIVE Urine Urobilinogen 2.0 H (<2.0) EU/dL Ur Leukocyte Esterase NEGATIVE (NEGATIVE) Urine RBC 0-2 (0-2/HPF) Urine WBC 2-3 (0-5/HPF) Ur Epithelial Cells NOT SEEN (NONE-FEW) Amorphous Sediment RARE (NEGATIVE) Urine Bacteria FEW (NEGATIVE) Urine Mucus RARE (NONE-MOD) 12/04/20 12/04/20 Range/Units 04:56 04:56 WBC 13.52 H (4.0-11.0) K/uL RBC 3.57 L (4.50-5.90) M/uL Hgb 13.0 (13.0-17.0) g/dL Hct 38.6 (38.0-50.0) % MCV 108.1 H (80.0-98.0) fL MCH 36.4 H (27.0-32.0) pg MCHC 33.7 (31.0-37.0) g/dL RDW Std Deviation 57.2 (28.0-62.0) fl RDW Coeff of Kristina 14 (11.0-15.0) % Plt Count 152 (150-400) K/uL MPV 11.40 (7.40-12.00) fL Neut % (Auto) 81.2 H (48.0-80.0) % Lymph % (Auto) 10.4 L (16.0-40.0) % Bradley % (Auto) 6.5 (0.0-15.0) % Eos % (Auto) 1.6 (0.0-7.0) % Baso % (Auto) 0.3 (0.0-1.5) % Neut # (Auto) 11.0 H (1.4-5.7) K/uL Lymph # (Auto) 1.4 (0.6-2.4) K/uL Bradley # (Auto) 0.9 H (0.0-0.8) K/uL Eos # (Auto) 0.2 (0.0-0.7) K/uL Baso # (Auto) 0.0 (0.0-0.1) K/uL Nucleated RBC % 0.0 /100WBC Nucleated RBCs # 0 K/uL Sodium 129 L (136-148) mmol/L Potassium 4.0 (3.5-5.1) mmol/L Chloride 94 L (98-107) mmol/L Carbon Dioxide 27.8 (21.0-32.0) mmol/L BUN 8 (7.0-18.0) mg/dL Creatinine 0.9 (0.8-1.3) mg/dL Est Cr Clr Drug Dosing 117.83 mL/min Estimated GFR (MDRD) > 60.0 ml/min Glucose 84 (74-106) mg/dL Calcium 8.0 L (8.5-10.1) mg/dL Phosphorus 1.8 L (2.6-4.7) mg/dL Magnesium 2.0 (1.8-2.4) mg/dL Total Bilirubin 3.9 H (0.2-1.0) mg/dL AST 79 H (15-37) IU/L ALT 60 (14-63) IU/L Alkaline Phosphatase 73 (46-116) U/L Total Protein 6.2 L (6.4-8.2) g/dL Albumin 2.3 L (3.4-5.0) g/dL Globulin 3.9 (2.6-4.0) g/dL Albumin/Globulin Ratio 0.6 L (0.9-1.6) Urine Color Urine Appearance Urine pH (5.0-8.0) Ur Specific [place] (1.001-1.035) Urine Protein (NEGATIVE) mg/dL Urine Glucose (UA) (NEGATIVE) mg/dL Urine Ketones (NEGATIVE) mg/dL Urine Occult Blood (NEGATIVE) Urine Nitrite (NEGATIVE) Urine Bilirubin (NEGATIVE) Urine Ictotest Urine Urobilinogen (<2.0) EU/dL Ur Leukocyte Esterase (NEGATIVE) Urine RBC (0-2/HPF) Urine WBC (0-5/HPF) Ur Epithelial Cells (NONE-FEW) Amorphous Sediment (NEGATIVE) Urine Bacteria (NEGATIVE) Urine Mucus (NONE-MOD) Sahil Results Last 24 Hours: Microbiology 12/02/20 06:05 Aerobic Blood Culture - Preliminary Blood - Venous - Lab Draw NO GROWTH AFTER 2 DAYS Anaerobic Blood Culture - Preliminary NO GROWTH AFTER 2 DAYS 12/02/20 05:55 Aerobic Blood Culture - Preliminary Blood - Venous NO GROWTH AFTER 2 DAYS Anaerobic Blood Culture - Preliminary NO GROWTH AFTER 2 DAYS Med Orders - Current: Current Medications Folic Acid (Folic Acid 50 Mg/10 Ml Mdv) 1 mg SUBCUT DAILY [facility] Last Admin: 12/03/20 08:38 Dose: 1 mg Documented by: Heparin Sodium (Porcine) (Heparin Sodium 5,000 Units/Ml Vial) 5,000 units SUBCUT Q8H [facility] Last Admin: 12/04/20 06:25 Dose: 5,000 units Documented by: Hydromorphone HCl (Hydromorphone 2 Mg/Ml Syringe) 2 mg IVPUSH Q2H PRN PRN Reason: Pain Last Admin: 12/04/20 06:26 Dose: 2 mg Documented by: Lactated Ringer's (Ringers, Lactated) 1,000 mls @ 200 mls/hr IV Q5H [facility] Last Admin: 12/04/20 04:24 Dose: 200 mls/hr Documented by: Pantoprazole Sodium 40 mg/ (Sodium Chloride) 10 mls @ 300 mls/hr IV Q24H [facility] Last Admin: 12/04/20 06:25 Dose: 300 mls/hr Documented by: Thiamine HCl 100 mg/ Sodium (Chloride) 101 mls @ 202 mls/hr IV DAILY [facility] Last Admin: 12/03/20 08:51 Dose: 202 mls/hr Documented by: Ceftriaxone Sodium/Dextrose 1 (gm/ Premix) 50 mls @ 100 mls/hr IV Q24H [facility] Last Admin: 12/03/20 19:06 Dose: 100 mls/hr Documented by: Lorazepam (Lorazepam 2 Mg/Ml Sdv) 0 mg IVPUSH Q2H PRN; Protocol PRN Reason: CIWAA Ondansetron HCl (Ondansetron 4 Mg/2 Ml Sdv) 4 mg IVPUSH Q4H PRN PRN Reason: Nausea Sodium Chloride (Sodium Chloride 0.9% 2.5 Ml Syringe) 2.5 ml FLUSH ASDIRECTED PRN PRN Reason: Keep Vein Open Discontinued Medications Hydromorphone HCl (Hydromorphone 1 Mg/Ml Syringe) 1 mg IVPUSH ONETIME ONE Stop: 12/02/20 05:53 Last Admin: 12/02/20 05:57 Dose: 1 mg Documented by: Hydromorphone HCl (Hydromorphone 1 Mg/Ml Syringe) 1 mg IVPUSH ONETIME ONE Stop: 12/02/20 07:40 Last Admin: 12/02/20 07:54 Dose: 1 mg Documented by: Hydromorphone HCl (Hydromorphone 1 Mg/Ml Syringe) 1 mg IVPUSH Q2H PRN PRN Reason: Pain Last Admin: 12/02/20 12:22 Dose: 1 mg Documented by: Hydromorphone HCl (Hydromorphone 1 Mg/Ml Syringe) 1 mg IVPUSH ONETIME ONE Stop: 12/02/20 13:36 Last Admin: 12/02/20 13:54 Dose: 1 mg Documented by: Pantoprazole Sodium 40 mg/ (Sodium Chloride) 10 mls @ 300 mls/hr IV NOW ONE Stop: 12/02/20 04:58 Last Admin: 12/02/20 05:06 Dose: 300 mls/hr Documented by: Cefoxitin Sodium 2 gm/ Sodium (Chloride) 100 mls @ 200 mls/hr IV ONETIME ONE Stop: 12/02/20 06:10 Last Admin: 12/02/20 05:46 Dose: Not Given Documented by: Sodium Chloride (Normal Saline) 1,000 mls @ 1,000 mls/hr IV .Bolus ONE Stop: 12/02/20 06:41 Last Admin: 12/02/20 05:53 Dose: 1,000 mls/hr Documented by: Cefoxitin Sodium 2 gm/ Premix 50 mls @ 100 mls/hr IV ONETIME ONE Stop: 12/02/20 06:15 Last Admin: 12/02/20 05:54 Dose: 100 mls/hr Documented by: Sodium Chloride (Normal Saline) 1,000 mls @ 1,000 mls/hr IV .Bolus ONE Stop: 12/02/20 07:42 Last Admin: 12/02/20 07:54 Dose: 1,000 mls/hr Documented by: Lactated Ringer's (Ringers, Lactated) 1,000 mls @ 999 mls/hr IV .BOLUS ONE Stop: 12/02/20 10:46 Last Admin: 12/02/20 10:09 Dose: 999 mls/hr Documented by: Lactated Ringer's (Ringers, Lactated) 1,000 mls @ 999 mls/hr IV .BOLUS ONE Stop: 12/02/20 11:10 Last Admin: 12/02/20 11:16 Dose: 999 mls/hr Documented by: Magnesium Sulfate (Magnesium Sulfate In Water 2 Gm/50 Ml) 2 gm in 50 mls @ 50 mls/hr IV ONETIME ONE Stop: 12/03/20 11:44 Last Admin: 12/03/20 10:54 Dose: 50 mls/hr Documented by: Ceftriaxone Sodium 1 gm/ (Sodium Chloride) 50 mls @ 100 mls/hr IV Q24H [facility] Iopamidol (Iopamidol 755 Mg/Ml 500 Ml Multipack Bottle) 100 ml IVPUSH ONETIME STA Stop: 12/02/20 07:46 Last Admin: 12/02/20 07:55 Dose: 100 ml Documented by: Magnesium Sulfate (Magnesium Sulfate/Water 2 Gm/50 Ml Premix Bag) 2 gm IV ONETIME ONE Stop: 12/03/20 19:22 Last Admin: 12/03/20 20:12 Dose: 2 gm Documented by: Ondansetron HCl (Ondansetron 4 Mg/2 Ml Sdv) 4 mg IVPUSH ONETIME ONE Stop: 12/02/20 04:58 Last Admin: 12/02/20 05:05 Dose: 4 mg Documented by: Ondansetron HCl (Ondansetron 4 Mg/2 Ml Sdv) 4 mg IVPUSH ONETIME ONE Stop: 12/02/20 05:53 Last Admin: 12/02/20 06:47 Dose: Not Given Documented by: Sodium Chloride (Sodium Chloride 0.9% 10 Ml Syringe) 10 ml FLUSH ASDIRECTED PRN PRN Reason: Keep Vein Open Last Admin: 12/02/20 07:55 Dose: 10 ml Documented by: Sodium Chloride (Sodium Chloride 0.9% 2.5 Ml Syringe) 2.5 ml FLUSH ASDIRECTED PRN PRN Reason: Keep Vein Open Last Admin: 12/02/20 07:55 Dose: 2.5 ml Documented by: - Exam Quality Assessment: DVT Prophylaxis. No: Supplemental Oxygen General: Alert, Oriented, Cooperative Lungs: Clear to Auscultation, Normal Respiratory Effort Cardiovascular: Regular Rate, Regular Rhythm, No Murmurs GI/Abdominal Exam: Normal Bowel Sounds, Soft, Distended, Tender (Diffusely over abdomen especially over epigastric region.) Back Exam: Normal Inspection, Full Range of Motion Extremities: Normal Inspection, Normal Range of Motion, Non-Tender, No Pedal Edema Neurological: No New Focal Deficit Psy/Mental Status: Alert, Normal Affect, Normal Mood - Patient Data Lab Results Last 24 hrs: Laboratory Results - last 24 hr 12/03/20 12/03/20 12/03/20 Range/Units 17:00 17:06 17:29 WBC (4.0-11.0) K/uL RBC (4.50-5.90) M/uL Hgb (13.0-17.0) g/dL Hct (38.0-50.0) % MCV (80.0-98.0) fL MCH (27.0-32.0) pg MCHC (31.0-37.0) g/dL RDW Std Deviation (28.0-62.0) fl RDW Coeff of Kristina (11.0-15.0) % Plt Count (150-400) K/uL MPV (7.40-12.00) fL Neut % (Auto) (48.0-80.0) % Lymph % (Auto) (16.0-40.0) % Bradley % (Auto) (0.0-15.0) % Eos % (Auto) (0.0-7.0) % Baso % (Auto) (0.0-1.5) % Neut # (Auto) (1.4-5.7) K/uL Lymph # (Auto) (0.6-2.4) K/uL Bradley # (Auto) (0.0-0.8) K/uL Eos # (Auto) (0.0-0.7) K/uL Baso # (Auto) (0.0-0.1) K/uL Nucleated RBC % /100WBC Nucleated RBCs # K/uL Sodium 129 L (136-148) mmol/L Potassium 3.8 (3.5-5.1) mmol/L Chloride 94 L (98-107) mmol/L Carbon Dioxide 26.5 (21.0-32.0) mmol/L BUN 10 (7.0-18.0) mg/dL Creatinine 0.9 (0.8-1.3) mg/dL Est Cr Clr Drug Dosing 117.83 mL/min Estimated GFR (MDRD) > 60.0 ml/min Glucose 106 (74-106) mg/dL Calcium 8.1 L (8.5-10.1) mg/dL Phosphorus (2.6-4.7) mg/dL Magnesium 1.6 L (1.8-2.4) mg/dL Total Bilirubin (0.2-1.0) mg/dL AST (15-37) IU/L ALT (14-63) IU/L Alkaline Phosphatase (46-116) U/L Total Protein (6.4-8.2) g/dL Albumin (3.4-5.0) g/dL Globulin (2.6-4.0) g/dL Albumin/Globulin Ratio (0.9-1.6) Urine Color ORANGE Urine Appearance CLEAR Urine pH 5.5 (5.0-8.0) Ur Specific [place] >= 1.030 (1.001-1.035) Urine Protein 100 H (NEGATIVE) mg/dL Urine Glucose (UA) NEGATIVE (NEGATIVE) mg/dL Urine Ketones 40 H (NEGATIVE) mg/dL Urine Occult Blood MODERATE H (NEGATIVE) Urine Nitrite POSITIVE H (NEGATIVE) Urine Bilirubin MODERATE H (NEGATIVE) Urine Ictotest POSITIVE Urine Urobilinogen 2.0 H (<2.0) EU/dL Ur Leukocyte Esterase NEGATIVE (NEGATIVE) Urine RBC 0-2 (0-2/HPF) Urine WBC 2-3 (0-5/HPF) Ur Epithelial Cells NOT SEEN (NONE-FEW) Amorphous Sediment RARE (NEGATIVE) Urine Bacteria FEW (NEGATIVE) Urine Mucus RARE (NONE-MOD) 12/04/20 12/04/20 Range/Units 04:56 04:56 WBC 13.52 H (4.0-11.0) K/uL RBC 3.57 L (4.50-5.90) M/uL Hgb 13.0 (13.0-17.0) g/dL Hct 38.6 (38.0-50.0) % MCV 108.1 H (80.0-98.0) fL MCH 36.4 H (27.0-32.0) pg MCHC 33.7 (31.0-37.0) g/dL RDW Std Deviation 57.2 (28.0-62.0) fl RDW Coeff of Kristina 14 (11.0-15.0) % Plt Count 152 (150-400) K/uL MPV 11.40 (7.40-12.00) fL Neut % (Auto) 81.2 H (48.0-80.0) % Lymph % (Auto) 10.4 L (16.0-40.0) % Bradley % (Auto) 6.5 (0.0-15.0) % Eos % (Auto) 1.6 (0.0-7.0) % Baso % (Auto) 0.3 (0.0-1.5) % Neut # (Auto) 11.0 H (1.4-5.7) K/uL Lymph # (Auto) 1.4 (0.6-2.4) K/uL Bradley # (Auto) 0.9 H (0.0-0.8) K/uL Eos # (Auto) 0.2 (0.0-0.7) K/uL Baso # (Auto) 0.0 (0.0-0.1) K/uL Nucleated RBC % 0.0 /100WBC Nucleated RBCs # 0 K/uL Sodium 129 L (136-148) mmol/L Potassium 4.0 (3.5-5.1) mmol/L Chloride 94 L (98-107) mmol/L Carbon Dioxide 27.8 (21.0-32.0) mmol/L BUN 8 (7.0-18.0) mg/dL Creatinine 0.9 (0.8-1.3) mg/dL Est Cr Clr Drug Dosing 117.83 mL/min Estimated GFR (MDRD) > 60.0 ml/min Glucose 84 (74-106) mg/dL Calcium 8.0 L (8.5-10.1) mg/dL Phosphorus 1.8 L (2.6-4.7) mg/dL Magnesium 2.0 (1.8-2.4) mg/dL Total Bilirubin 3.9 H (0.2-1.0) mg/dL AST 79 H (15-37) IU/L ALT 60 (14-63) IU/L Alkaline Phosphatase 73 (46-116) U/L Total Protein 6.2 L (6.4-8.2) g/dL Albumin 2.3 L (3.4-5.0) g/dL Globulin 3.9 (2.6-4.0) g/dL Albumin/Globulin Ratio 0.6 L (0.9-1.6) Urine Color Urine Appearance Urine pH (5.0-8.0) Ur Specific [place] (1.001-1.035) Urine Protein (NEGATIVE) mg/dL Urine Glucose (UA) (NEGATIVE) mg/dL Urine Ketones (NEGATIVE) mg/dL Urine Occult Blood (NEGATIVE) Urine Nitrite (NEGATIVE) Urine Bilirubin (NEGATIVE) Urine Ictotest Urine Urobilinogen (<2.0) EU/dL Ur Leukocyte Esterase (NEGATIVE) Urine RBC (0-2/HPF) Urine WBC (0-5/HPF) Ur Epithelial Cells (NONE-FEW) Amorphous Sediment (NEGATIVE) Urine Bacteria (NEGATIVE) Urine Mucus (NONE-MOD) Result Diagrams: 12/04/20 04:56 12/04/20 04:56 Sahil Results Last 24 hrs: Microbiology 12/02/20 06:05 Aerobic Blood Culture - Preliminary Blood - Venous - Lab Draw NO GROWTH AFTER 2 DAYS Anaerobic Blood Culture - Preliminary NO GROWTH AFTER 2 DAYS 12/02/20 05:55 Aerobic Blood Culture - Preliminary Blood - Venous NO GROWTH AFTER 2 DAYS Anaerobic Blood Culture - Preliminary NO GROWTH AFTER 2 DAYS Sepsis Event Note - Evaluation Sepsis Screening Result: Sepsis Risk - Focused Exam Vital Signs: Vital Signs Temp Pulse Resp BP Pulse Ox 12/04/20 04:00 98.2 F 105 H 16 152/92 H 93 L 12/04/20 00:38 98.4 F 108 H 16 150/89 H 90 L - Problem List & Annotations (1) Acute alcoholic pancreatitis SNOMED Code(s): 994585486 Code(s): K85.20 - ALCOHOL INDUCED ACUTE PANCREATITIS WITHOUT NECROSIS OR INFCT Status: Acute Current Visit: Yes (2) Elevated lactic acid level SNOMED Code(s): 6427816 Code(s): R79.89 - OTHER SPECIFIED ABNORMAL FINDINGS OF BLOOD CHEMISTRY S tatus: Acute Current Visit: Yes (3) Alcohol abuse SNOMED Code(s): 05377947 Code(s): F10.10 - ALCOHOL ABUSE, UNCOMPLICATED Status: Chronic Current Visit: Yes (4) Tobacco use SNOMED Code(s): 119194531 Code(s): Z72.0 - TOBACCO USE Status: Chronic Current Visit: Yes (5) Hyperbilirubinemia SNOMED Code(s): 42666439 Code(s): E80.6 - OTHER DISORDERS OF BILIRUBIN METABOLISM Status: Acute Current Visit: Yes (6) Transaminitis SNOMED Code(s): 929122358, 641134478 Code(s): R74.01 - ELEVATION OF LEVELS OF LIVER TRANSAMINASE LEVELS Status: Acute Current Visit: Yes (7) Hypophosphatemia SNOMED Code(s): 1876757 Code(s): E83.39 - OTHER DISORDERS OF PHOSPHORUS METABOLISM Status: Acute Current Visit: Yes (8) Hypomagnesemia SNOMED Code(s): 356825925 Code(s): E83.42 - HYPOMAGNESEMIA Status: Acute Current Visit: Yes (9) UTI (urinary tract infection) SNOMED Code(s): 50028660 Code(s): N39.0 - URINARY TRACT INFECTION, SITE NOT SPECIFIED Status: Acute Current Visit: Yes - Problem List Review Problem List Initiated/Reviewed/Updated: Yes - My Orders Last 24 Hours: My Active Orders 12/05/20 05:11 CBC WITH AUTO DIFF [HEME] AM COMPREHENSIVE METABOLIC PN,CMP [CHEM] AM MAGNESIUM [CHEM] AM PHOSPHORUS [CHEM] AM 12/06/20 05:11 CBC WITH AUTO DIFF [HEME] AM COMPREHENSIVE METABOLIC PN,CMP [CHEM] AM MAGNESIUM [CHEM] AM PHOSPHORUS [CHEM] AM 12/07/20 05:11 CBC WITH AUTO DIFF [HEME] AM COMPREHENSIVE METABOLIC PN,CMP [CHEM] AM MAGNESIUM [CHEM] AM PHOSPHORUS [CHEM] AM - Plan Plan:: This 30-year-old male admitted with acute alcoholic pancreatitis 1. Acute alcoholic pancreatitis -Continue LR 200 mL/h -Dilaudid for pain control -Protonix daily -Counseling on alcohol sobriety. -N.p.o. for now -Hyperbilirubinemia and transaminitis improving steadily -Hypophosphatemia noted today will replace with 30 mmol sodium phosphate watch daily -Potassium and magnesium appears stable today recheck in a.m. -Encouraged ambulation to help with abdominal distention -Discussed advancing diet but while he is having significant amount of pain and needing narcotics advancing diet is not appropriate at this time. He verbally agrees and understands. 2. UTI -Started having dysuria and burning last night. - UA revealed moderate blood positive nitrites negative leukocyte esterase WBCs 2-3 few bacteria -Rocephin 1 g IV started last night we will continue this -Patient reports symptoms have improved significantly. 3. Alcohol abuse -Thiamine, folic acid daily -CIWAA protocol with Ativan as needed VTE prophylaxis: Heparin GI prophylaxis: Protonix CODE STATUS: Full code Dispo: 2 to 4 days pending improvement.
[2020-12-04] MEDS ORDERED: Sodium Phosphate 30 MMOLE in Sodium Chloride 0.9% 250 ML IV ONE (09:00)
[2020-12-04] MEDS: Thiamine 100 MG in Sodium Chloride 0.9% 100 ML IV SCH (09:46)
[2020-12-04] MEDS: Folic Acid 50 MG/10 ML MDV SUBCUT SCH (10:00)
[2020-12-04] MEDS: cefTRIAXone 1 GM in Premix Bag 1 BAG IV SCH (18:36)
[2020-12-05] MEDS: HYDROmorphone 2 MG/ML Syringe IVPUSH PRN ×10 (00:47→22:24)
[2020-12-05] MEDS: Lactated Ringers 1,000 ML IV SCH ×3 (04:29→21:33)
[2020-12-05] MEDS: Pantoprazole 40 MG in Sodium Chloride 0.9% 10 ML IV SCH (05:05)
[2020-12-05] MEDS: Heparin Sodium 5,000 Units/ML Vial SUBCUT SCH ×3 (05:06→22:19)
[2020-12-05 05:52] LABS: BLOOD UREA NITROGEN,BUN 7 mg/dL (7.0-18.0); CARBON DIOXIDE,CO2 26.6 mmol/L (21.0-32.0); CHLORIDE,CL 96 mmol/L (98-107); GLUCOSE RANDOM 74 mg/dL (74-106); POTASSIUM,K 3.8 mmol/L (3.5-5.1); SODIUM,NA 131 mmol/L (136-148)
[2020-12-05] MEDS: Thiamine 100 MG in Sodium Chloride 0.9% 100 ML IV SCH (09:54)
[2020-12-05] MEDS: Folic Acid 50 MG/10 ML MDV SUBCUT SCH (10:00)
[2020-12-05] MEDS ORDERED: Sodium Phosphate 15 mMole/5 ML SDV IV ONE (12:18)
--- NOTE | 2020-12-05 12:21 | PCM.PN ---
- General Info Date of Service: 12/05/20 - Review of Systems Systems Review Comment:: abdominal pain is improving, he is wanting to eat. - Patient Data Vitals - Most Recent: Last Vital Signs Temp 36.8 C 12/05/20 11:16 Pulse 90 12/05/20 11:16 Resp 18 12/05/20 11:16 BP 177/108 H 12/05/20 11:16 Pulse Ox 96 12/05/20 11:16 Weight - Most Recent: 100.244 kg I&O - Last 24 Hours: Intake & Output 12/04/20 12/05/20 12/05/20 22:59 06:59 14:59 Intake Total 200 3126 Output Total 1950 1600 Balance -1750 1526 Lab Results Last 24 Hours: Laboratory Results - last 24 hr 12/05/20 12/05/20 Range/Units 05:05 05:05 WBC 10.43 (4.0-11.0) K/uL RBC 3.35 L (4.50-5.90) M/uL Hgb 12.2 L (13.0-17.0) g/dL Hct 36.0 L (38.0-50.0) % MCV 107.5 H (80.0-98.0) fL MCH 36.4 H (27.0-32.0) pg MCHC 33.9 (31.0-37.0) g/dL RDW Std Deviation 56.2 (28.0-62.0) fl RDW Coeff of Kristina 14 (11.0-15.0) % Plt Count 176 (150-400) K/uL MPV 10.60 (7.40-12.00) fL Neut % (Auto) 78.7 (48.0-80.0) % Lymph % (Auto) 11.6 L (16.0-40.0) % [facility] % (Auto) 7.3 (0.0-15.0) % Eos % (Auto) 2.0 (0.0-7.0) % Baso % (Auto) 0.4 (0.0-1.5) % Neut # (Auto) 8.2 H (1.4-5.7) K/uL Lymph # (Auto) 1.2 (0.6-2.4) K/uL [facility] # (Auto) 0.8 (0.0-0.8) K/uL Eos # (Auto) 0.2 (0.0-0.7) K/uL Baso # (Auto) 0.0 (0.0-0.1) K/uL Nucleated RBC % 0.0 /100WBC Nucleated RBCs # 0 K/uL Sodium 131 L (136-148) mmol/L Potassium 3.8 (3.5-5.1) mmol/L Chloride 96 L (98-107) mmol/L Carbon Dioxide 26.6 (21.0-32.0) mmol/L BUN 7 (7.0-18.0) mg/dL Creatinine 0.8 (0.8-1.3) mg/dL Est Cr Clr Drug Dosing 132.56 mL/min Estimated GFR (MDRD) > 60.0 ml/min Glucose 74 (74-106) mg/dL Calcium 8.4 L (8.5-10.1) mg/dL Phosphorus 2.4 L (2.6-4.7) mg/dL Magnesium 2.0 (1.8-2.4) mg/dL Total Bilirubin 2.2 H (0.2-1.0) mg/dL AST 76 H (15-37) IU/L ALT 57 (14-63) IU/L Alkaline Phosphatase 74 (46-116) U/L Total Protein 6.4 (6.4-8.2) g/dL Albumin 2.3 L (3.4-5.0) g/dL Globulin 4.1 H (2.6-4.0) g/dL Albumin/Globulin Ratio 0.6 L (0.9-1.6) Sahil Results Last 24 Hours: Microbiology 12/03/20 17:06 Urine Culture - Final Urine, Clean Catch No Growth 12/02/20 06:05 Aerobic Blood Culture - Preliminary Blood - Venous - Lab Draw NO GROWTH AFTER 3 DAYS Anaerobic Blood Culture - Preliminary NO GROWTH AFTER 3 DAYS 12/02/20 05:55 Aerobic Blood Culture - Preliminary Blood - Venous NO GROWTH AFTER 3 DAYS Anaerobic Blood Culture - Preliminary NO GROWTH AFTER 3 DAYS Med Orders - Current: Current Medications Folic Acid (Folic Acid 50 Mg/10 Ml Mdv) 1 mg SUBCUT DAILY [facility] Last Admin: 12/05/20 10:00 Dose: 1 mg Documented by: Heparin Sodium (Porcine) (Heparin Sodium 5,000 Units/Ml Vial) 5,000 units SUBCUT Q8H [facility] Last Admin: 12/05/20 05:06 Dose: 5,000 units Documented by: Hydromorphone HCl (Hydromorphone 2 Mg/Ml Syringe) 2 mg IVPUSH Q2H PRN PRN Reason: Pain Last Admin: 12/05/20 10:01 Dose: 2 mg Documented by: Pantoprazole Sodium 40 mg/ (Sodium Chloride) 10 mls @ 300 mls/hr IV Q24H [facility] Last Admin: 12/05/20 05:05 Dose: 300 mls/hr Documented by: Thiamine HCl 100 mg/ Sodium (Chloride) 101 mls @ 202 mls/hr IV DAILY [facility] Last Admin: 12/05/20 09:54 Dose: 202 mls/hr Documented by: Ceftriaxone Sodium/Dextrose 1 (gm/ Premix) 50 mls @ 100 mls/hr IV Q24H [facility] Last Admin: 12/04/20 18:36 Dose: 100 mls/hr Documented by: Lactated Ringer's (Ringers, Lactated) 1,000 mls @ 200 mls/hr IV ASDIRECTED [facility] Last Admin: 12/05/20 09:53 Dose: 200 mls/hr Documented by: Lorazepam (Lorazepam 2 Mg/Ml Sdv) 0 mg IVPUSH Q2H PRN; Protocol PRN Reason: CIWAA Ondansetron HCl (Ondansetron 4 Mg/2 Ml Sdv) 4 mg IVPUSH Q4H PRN PRN Reason: Nausea Sodium Chloride (Sodium Chloride 0.9% 2.5 Ml Syringe) 2.5 ml FLUSH ASDIRECTED PRN PRN Reason: Keep Vein Open Sodium Phosphate (Sodium Phosphate 15 Mmole/5 Ml Sdv) 30 mmole IV ONETIME ONE Stop: 12/05/20 12:19 Discontinued Medications Hydromorphone HCl (Hydromorphone 1 Mg/Ml Syringe) 1 mg IVPUSH ONETIME ONE Stop: 12/02/20 05:53 Last Admin: 12/02/20 05:57 Dose: 1 mg Documented by: Hydromorphone HCl (Hydromorphone 1 Mg/Ml Syringe) 1 mg IVPUSH ONETIME ONE Stop: 12/02/20 07:40 Last Admin: 12/02/20 07:54 Dose: 1 mg Documented by: Hydromorphone HCl (Hydromorphone 1 Mg/Ml Syringe) 1 mg IVPUSH Q2H PRN PRN Reason: Pain Last Admin: 12/02/20 12:22 Dose: 1 mg Documented by: Hydromorphone HCl (Hydromorphone 1 Mg/Ml Syringe) 1 mg IVPUSH ONETIME ONE Stop: 12/02/20 13:36 Last Admin: 12/02/20 13:54 Dose: 1 mg Documented by: Pantoprazole Sodium 40 mg/ (Sodium Chloride) 10 mls @ 300 mls/hr IV NOW ONE Stop: 12/02/20 04:58 Last Admin: 12/02/20 05:06 Dose: 300 mls/hr Documented by: Cefoxitin Sodium 2 gm/ Sodium (Chloride) 100 mls @ 200 mls/hr IV ONETIME ONE Stop: 12/02/20 06:10 Last Admin: 12/02/20 05:46 Dose: Not Given Documented by: Sodium Chloride (Normal Saline) 1,000 mls @ 1,000 mls/hr IV .Bolus ONE Stop: 12/02/20 06:41 Last Admin: 12/02/20 05:53 Dose: 1,000 mls/hr Documented by: Cefoxitin Sodium 2 gm/ Premix 50 mls @ 100 mls/hr IV ONETIME ONE Stop: 12/02/20 06:15 Last Admin: 12/02/20 05:54 Dose: 100 mls/hr Documented by: Sodium Chloride (Normal Saline) 1,000 mls @ 1,000 mls/hr IV .Bolus ONE Stop: 12/02/20 07:42 Last Admin: 12/02/20 07:54 Dose: 1,000 mls/hr Documented by: Lactated Ringer's (Ringers, Lactated) 1,000 mls @ 999 mls/hr IV .BOLUS ONE Stop: 12/02/20 10:46 Last Admin: 12/02/20 10:09 Dose: 999 mls/hr Documented by: Lactated Ringer's (Ringers, Lactated) 1,000 mls @ 999 mls/hr IV .BOLUS ONE Stop: 12/02/20 11:10 Last Admin: 12/02/20 11:16 Dose: 999 mls/hr Documented by: Lactated Ringer's (Ringers, Lactated) 1,000 mls @ 200 mls/hr IV Q5H [facility] Last Admin: 12/04/20 08:36 Dose: Not Given Documented by: Magnesium Sulfate (Magnesium Sulfate In Water 2 Gm/50 Ml) 2 gm in 50 mls @ 50 mls/hr IV ONETIME ONE Stop: 12/03/20 11:44 Last Admin: 12/03/20 10:54 Dose: 50 mls/hr Documented by: Ceftriaxone Sodium 1 gm/ (Sodium Chloride) 50 mls @ 100 mls/hr IV Q24H [facility] Sodium Phosphate 30 mmole/ (Sodium Chloride) 260 mls @ 62 mls/hr IV ONETIME ONE Stop: 12/04/20 13:11 Last Admin: 12/04/20 10:26 Dose: 62 mls/hr Documented by: Iopamidol (Iopamidol 755 Mg/Ml 500 Ml Multipack Bottle) 100 ml IVPUSH ONETIME STA Stop: 12/02/20 07:46 Last Admin: 12/02/20 07:55 Dose: 100 ml Documented by: Magnesium Sulfate (Magnesium Sulfate/Water 2 Gm/50 Ml Premix Bag) 2 gm IV ONETIME ONE Stop: 12/03/20 19:22 Last Admin: 12/03/20 20:12 Dose: 2 gm Documented by: Ondansetron HCl (Ondansetron 4 Mg/2 Ml Sdv) 4 mg IVPUSH ONETIME ONE Stop: 12/02/20 04:58 Last Admin: 12/02/20 05:05 Dose: 4 mg Documented by: Ondansetron HCl (Ondansetron 4 Mg/2 Ml Sdv) 4 mg IVPUSH ONETIME ONE Stop: 12/02/20 05:53 Last Admin: 12/02/20 06:47 Dose: Not Given Documented by: Sodium Chloride (Sodium Chloride 0.9% 10 Ml Syringe) 10 ml FLUSH ASDIRECTED PRN PRN Reason: Keep Vein Open Last Admin: 12/02/20 07:55 Dose: 10 ml Documented by: Sodium Chloride (Sodium Chloride 0.9% 2.5 Ml Syringe) 2.5 ml FLUSH ASDIRECTED PRN PRN Reason: Keep Vein Open Last Admin: 12/02/20 07:55 Dose: 2.5 ml Documented by: - Exam General: Alert, Oriented Neck: Supple Lungs: Clear to Auscultation, Normal Respiratory Effort Cardiovascular: Regular Rate, Regular Rhythm GI/Abdominal Exam: Normal Bowel Sounds, Soft, Tender Extremities: Non-Tender, No Pedal Edema Skin: Warm, Dry, Intact Neurological: No New Focal Deficit - Patient Data Lab Results Last 24 hrs: Laboratory Results - last 24 hr 12/05/20 12/05/20 Range/Units 05:05 05:05 WBC 10.43 (4.0-11.0) K/uL RBC 3.35 L (4.50-5.90) M/uL Hgb 12.2 L (13.0-17.0) g/dL Hct 36.0 L (38.0-50.0) % MCV 107.5 H (80.0-98.0) fL MCH 36.4 H (27.0-32.0) pg MCHC 33.9 (31.0-37.0) g/dL RDW Std Deviation 56.2 (28.0-62.0) fl RDW Coeff of Kristina 14 (11.0-15.0) % Plt Count 176 (150-400) K/uL MPV 10.60 (7.40-12.00) fL Neut % (Auto) 78.7 (48.0-80.0) % Lymph % (Auto) 11.6 L (16.0-40.0) % [facility] % (Auto) 7.3 (0.0-15.0) % Eos % (Auto) 2.0 (0.0-7.0) % Baso % (Auto) 0.4 (0.0-1.5) % Neut # (Auto) 8.2 H (1.4-5.7) K/uL Lymph # (Auto) 1.2 (0.6-2.4) K/uL [facility] # (Auto) 0.8 (0.0-0.8) K/uL Eos # (Auto) 0.2 (0.0-0.7) K/uL Baso # (Auto) 0.0 (0.0-0.1) K/uL Nucleated RBC % 0.0 /100WBC Nucleated RBCs # 0 K/uL Sodium 131 L (136-148) mmol/L Potassium 3.8 (3.5-5.1) mmol/L Chloride 96 L (98-107) mmol/L Carbon Dioxide 26.6 (21.0-32.0) mmol/L BUN 7 (7.0-18.0) mg/dL Creatinine 0.8 (0.8-1.3) mg/dL Est Cr Clr Drug Dosing 132.56 mL/min Estimated GFR (MDRD) > 60.0 ml/min Glucose 74 (74-106) mg/dL Calcium 8.4 L (8.5-10.1) mg/dL Phosphorus 2.4 L (2.6-4.7) mg/dL Magnesium 2.0 (1.8-2.4) mg/dL Total Bilirubin 2.2 H (0.2-1.0) mg/dL AST 76 H (15-37) IU/L ALT 57 (14-63) IU/L Alkaline Phosphatase 74 (46-116) U/L Total Protein 6.4 (6.4-8.2) g/dL Albumin 2.3 L (3.4-5.0) g/dL Globulin 4.1 H (2.6-4.0) g/dL Albumin/Globulin Ratio 0.6 L (0.9-1.6) Result Diagrams: 12/05/20 05:05 12/05/20 05:05 Sahil Results Last 24 hrs: Microbiology 12/03/20 17:06 Urine Culture - Final Urine, Clean Catch No Growth 12/02/20 06:05 Aerobic Blood Culture - Preliminary Blood - Venous - Lab Draw NO GROWTH AFTER 3 DAYS Anaerobic Blood Culture - Preliminary NO GROWTH AFTER 3 DAYS 12/02/20 05:55 Aerobic Blood Culture - Preliminary Blood - Venous NO GROWTH AFTER 3 DAYS Anaerobic Blood Culture - Preliminary NO GROWTH AFTER 3 DAYS Sepsis Event Note - Evaluation Sepsis Screening Result: No Definite Risk - Focused Exam Vital Signs: Vital Signs Temp Pulse Resp BP BP Pulse Ox 12/05/20 11:16 36.8 C 90 18 177/108 H 96 12/05/20 07:28 36.8 C 94 20 174/104 H 96 12/05/20 02:55 36.6 C 99 14 168/103 H 98 - Problem List Review Problem List Initiated/Reviewed/Updated: Yes - My Orders Last 24 Hours: My Active Orders 12/05/20 Breakfast Clear Liquid Diet [DIET] 12/05/20 12:18 Sodium Phosphate 30 mmole IV ONETIME ONE - Plan Plan:: This 30-year-old male admitted with acute alcoholic pancreatitis 1. Acute alcoholic pancreatitis -Continue LR 200 mL/h -Dilaudid for pain control -Protonix daily -Counseling on alcohol sobriety. -will start clear liquid diet -Hyperbilirubinemia and transaminitis improving steadily -Hypophosphatemia noted today will replace with 30 mmol sodium phosphate watch daily -Potassium and magnesium appears stable today recheck in a.m. 2. UTI -continue rocephin 3. Alcohol abuse -Thiamine, folic acid daily -CIWAA protocol with Ativan as needed VTE prophylaxis: Heparin GI prophylaxis: Protonix CODE STATUS: Full code Dispo: 2 to 4 days pending improvement.
[2020-12-05] MEDS ORDERED: Sodium Phosphate 30 MMOLE in Sodium Chloride 0.9% 250 ML IV ONE (12:30)
[2020-12-05] MEDS: cefTRIAXone 1 GM in Premix Bag 1 BAG IV SCH (19:10)
[2020-12-06] MEDS: HYDROmorphone 2 MG/ML Syringe IVPUSH PRN ×4 (01:04→08:49)
[2020-12-06] MEDS: Lactated Ringers 1,000 ML IV SCH ×4 (03:21→22:19)
[2020-12-06 05:41] LABS: BLOOD UREA NITROGEN,BUN 6 mg/dL (7.0-18.0); CARBON DIOXIDE,CO2 24.2 mmol/L (21.0-32.0); CHLORIDE,CL 98 mmol/L (98-107); GLUCOSE RANDOM 77 mg/dL (74-106); POTASSIUM,K 3.3 mmol/L (3.5-5.1); SODIUM,NA 133 mmol/L (136-148)
[2020-12-06] MEDS: Heparin Sodium 5,000 Units/ML Vial SUBCUT SCH ×3 (05:55→22:19)
[2020-12-06] MEDS: Pantoprazole 40 MG in Sodium Chloride 0.9% 10 ML IV SCH (06:02)
[2020-12-06] MEDS: Folic Acid 50 MG/10 ML MDV SUBCUT SCH (08:48)
[2020-12-06] MEDS: Sodium Chloride 0.9% 2.5 ML Syringe FLUSH PRN ×3 (08:57→12:53)
[2020-12-06] MEDS: Thiamine 100 MG in Sodium Chloride 0.9% 100 ML IV SCH (09:35)
[2020-12-06] MEDS ORDERED: Potassium Chloride Riders 20 MEQ in Premix Bag 1 BAG IV ONE (10:01)
[2020-12-06] MEDS ORDERED: NS + KCl 20mEq/L 1,000 ML IV SCH (10:30)
[2020-12-06] MEDS: amLODIPine 5 MG Tab PO SCH (10:30)
--- NOTE | 2020-12-06 10:51 | PCM.PN ---
- General Info Date of Service: 12/06/20 Admission Dx/Problem (Free Text): Admission Diagnosis/Problem Admission Diagnosis/Problem Pancreatitis Subjective Update: states he might have overdone his clear diet yesterday, he feels he started feeling a little worse after he ate little too much yesterday. No tremors, hallucinations, Functional Status: Denies: Pain Controlled, Tolerating Diet - Review of Systems General: Reports: Weakness. Denies: Fever, Fatigue, Malaise Pulmonary: Denies: Shortness of Breath, Pleuritic Chest Pain Cardiovascular: Denies: Chest Pain, Palpitations, Dyspnea on Exertion Gastrointestinal: Reports: Abdominal Pain. Denies: Constipation, Decreased Appetite Genitourinary: Denies: Dysuria, Frequency, Burning Skin: Denies: Cyanosis, Jaundice, Mottled - Patient Data Vitals - Most Recent: Last Vital Signs Temp 36.8 C 12/06/20 10:27 Pulse 87 12/06/20 10:27 Resp 20 12/06/20 10:27 BP 179/114 H 12/06/20 10:30 Pulse Ox 96 12/06/20 10:27 Weight - Most Recent: 100.244 kg I&O - Last 24 Hours: Intake & Output 12/05/20 12/06/20 12/06/20 22:59 06:59 14:59 Intake Total 860 2644 Output Total 2750 1900 Balance -1890 744 Lab Results Last 24 Hours: Laboratory Results - last 24 hr 12/06/20 12/06/20 Range/Units 04:50 04:50 WBC 9.35 (4.0-11.0) K/uL RBC 3.30 L (4.50-5.90) M/uL Hgb 12.0 L (13.0-17.0) g/dL Hct 35.5 L (38.0-50.0) % MCV 107.6 H (80.0-98.0) fL MCH 36.4 H (27.0-32.0) pg MCHC 33.8 (31.0-37.0) g/dL RDW Std Deviation 56.1 (28.0-62.0) fl RDW Coeff of Kristina 14 (11.0-15.0) % Plt Count 216 (150-400) K/uL MPV 10.50 (7.40-12.00) fL Neut % (Auto) 73.2 (48.0-80.0) % Lymph % (Auto) 12.1 L (16.0-40.0) % [place] % (Auto) 10.5 (0.0-15.0) % Eos % (Auto) 3.9 (0.0-7.0) % Baso % (Auto) 0.3 (0.0-1.5) % Neut # (Auto) 6.9 H (1.4-5.7) K/uL Lymph # (Auto) 1.1 (0.6-2.4) K/uL [place] # (Auto) 1.0 H (0.0-0.8) K/uL Eos # (Auto) 0.4 (0.0-0.7) K/uL Baso # (Auto) 0.0 (0.0-0.1) K/uL Nucleated RBC % 0.0 /100WBC Nucleated RBCs # 0 K/uL Sodium 133 L (136-148) mmol/L Potassium 3.3 L (3.5-5.1) mmol/L Chloride 98 (98-107) mmol/L Carbon Dioxide 24.2 (21.0-32.0) mmol/L BUN 6 L (7.0-18.0) mg/dL Creatinine 0.8 (0.8-1.3) mg/dL Est Cr Clr Drug Dosing 132.56 mL/min Estimated GFR (MDRD) > 60.0 ml/min Glucose 77 (74-106) mg/dL Calcium 8.2 L (8.5-10.1) mg/dL Phosphorus 3.2 (2.6-4.7) mg/dL Magnesium 1.8 (1.8-2.4) mg/dL Total Bilirubin 1.7 H (0.2-1.0) mg/dL AST 70 H (15-37) IU/L ALT 59 (14-63) IU/L Alkaline Phosphatase 91 (46-116) U/L Total Protein 6.6 (6.4-8.2) g/dL Albumin 2.3 L (3.4-5.0) g/dL Globulin 4.3 H (2.6-4.0) g/dL Albumin/Globulin Ratio 0.5 L (0.9-1.6) Sahil Results Last 24 Hours: Microbiology 12/02/20 06:05 Aerobic Blood Culture - Preliminary Blood - Venous - Lab Draw NO GROWTH AFTER 4 DAYS Anaerobic Blood Culture - Preliminary NO GROWTH AFTER 4 DAYS 12/02/20 05:55 Aerobic Blood Culture - Preliminary Blood - Venous NO GROWTH AFTER 4 DAYS Anaerobic Blood Culture - Preliminary NO GROWTH AFTER 4 DAYS 12/03/20 17:06 Urine Culture - Final Urine, Clean Catch No Growth Med Orders - Current: Current Medications Amlodipine Besylate (Amlodipine 5 Mg Tab) 5 mg PO DAILY [facility] Last Admin: 12/06/20 10:30 Dose: 5 mg Documented by: Folic Acid (Folic Acid 50 Mg/10 Ml Mdv) 1 mg SUBCUT DAILY [facility] Last Admin: 12/06/20 08:48 Dose: 1 mg Documented by: Heparin Sodium (Porcine) (Heparin Sodium 5,000 Units/Ml Vial) 5,000 units SUBCUT Q8H [facility] Last Admin: 12/06/20 05:55 Dose: 5,000 units Documented by: Pantoprazole Sodium 40 mg/ (Sodium Chloride) 10 mls @ 300 mls/hr IV Q24H [facility] Last Admin: 12/06/20 06:02 Dose: 300 mls/hr Documented by: Thiamine HCl 100 mg/ Sodium (Chloride) 101 mls @ 202 mls/hr IV DAILY [facility] Last Admin: 12/06/20 09:35 Dose: 202 mls/hr Documented by: Ceftriaxone Sodium/Dextrose 1 (gm/ Premix) 50 mls @ 100 mls/hr IV Q24H [facility] Last Admin: 12/05/20 19:10 Dose: 100 mls/hr Documented by: Lactated Ringer's (Ringers, Lactated) 1,000 mls @ 200 mls/hr IV ASDIRECTED [facility] Last Admin: 12/06/20 08:46 Dose: 200 mls/hr Documented by: Potassium Chloride/Sodium Chloride (Normal Saline With 20 Meq Kcl) 1,000 mls @ 500 mls/hr IV ONETIME [facility] Lorazepam (Lorazepam 2 Mg/Ml Sdv) 0 mg IVPUSH Q2H PRN; Protocol PRN Reason: CIWAA Morphine Sulfate (Morphine 2 Mg/Ml Syringe) 2 mg IVPUSH Q4H PRN PRN Reason: Pain (severe 7-10) Ondansetron HCl (Ondansetron 4 Mg/2 Ml Sdv) 4 mg IVPUSH Q4H PRN PRN Reason: Nausea Sodium Chloride (Sodium Chloride 0.9% 2.5 Ml Syringe) 2.5 ml FLUSH ASDIRECTED PRN PRN Reason: Keep Vein Open Last Admin: 12/06/20 08:57 Dose: 2.5 ml Documented by: Discontinued Medications Hydromorphone HCl (Hydromorphone 1 Mg/Ml Syringe) 1 mg IVPUSH ONETIME ONE Stop: 12/02/20 05:53 Last Admin: 12/02/20 05:57 Dose: 1 mg Documented by: Hydromorphone HCl (Hydromorphone 1 Mg/Ml Syringe) 1 mg IVPUSH ONETIME ONE Stop: 12/02/20 07:40 Last Admin: 12/02/20 07:54 Dose: 1 mg Documented by: Hydromorphone HCl (Hydromorphone 1 Mg/Ml Syringe) 1 mg IVPUSH Q2H PRN PRN Reason: Pain Last Admin: 12/02/20 12:22 Dose: 1 mg Documented by: Hydromorphone HCl (Hydromorphone 1 Mg/Ml Syringe) 1 mg IVPUSH ONETIME ONE Stop: 12/02/20 13:36 Last Admin: 12/02/20 13:54 Dose: 1 mg Documented by: Hydromorphone HCl (Hydromorphone 2 Mg/Ml Syringe) 2 mg IVPUSH Q2H PRN PRN Reason: Pain Last Admin: 12/06/20 08:49 Dose: 2 mg Documented by: Pantoprazole Sodium 40 mg/ (Sodium Chloride) 10 mls @ 300 mls/hr IV NOW ONE Stop: 12/02/20 04:58 Last Admin: 12/02/20 05:06 Dose: 300 mls/hr Documented by: Cefoxitin Sodium 2 gm/ Sodium (Chloride) 100 mls @ 200 mls/hr IV ONETIME ONE Stop: 12/02/20 06:10 Last Admin: 12/02/20 05:46 Dose: Not Given Documented by: Sodium Chloride (Normal Saline) 1,000 mls @ 1,000 mls/hr IV .Bolus ONE Stop: 12/02/20 06:41 Last Admin: 12/02/20 05:53 Dose: 1,000 mls/hr Documented by: Cefoxitin Sodium 2 gm/ Premix 50 mls @ 100 mls/hr IV ONETIME ONE Stop: 12/02/20 06:15 Last Admin: 12/02/20 05:54 Dose: 100 mls/hr Documented by: Sodium Chloride (Normal Saline) 1,000 mls @ 1,000 mls/hr IV .Bolus ONE Stop: 12/02/20 07:42 Last Admin: 12/02/20 07:54 Dose: 1,000 mls/hr Documented by: Lactated Ringer's (Ringers, Lactated) 1,000 mls @ 999 mls/hr IV .BOLUS ONE Stop: 12/02/20 10:46 Last Admin: 12/02/20 10:09 Dose: 999 mls/hr Documented by: Lactated Ringer's (Ringers, Lactated) 1,000 mls @ 999 mls/hr IV .BOLUS ONE Stop: 12/02/20 11:10 Last Admin: 12/02/20 11:16 Dose: 999 mls/hr Documented by: Lactated Ringer's (Ringers, Lactated) 1,000 mls @ 200 mls/hr IV Q5H [facility] Last Admin: 12/04/20 08:36 Dose: Not Given Documented by: Magnesium Sulfate (Magnesium Sulfate In Water 2 Gm/50 Ml) 2 gm in 50 mls @ 50 mls/hr IV ONETIME ONE Stop: 12/03/20 11:44 Last Admin: 12/03/20 10:54 Dose: 50 mls/hr Documented by: Ceftriaxone Sodium 1 gm/ (Sodium Chloride) 50 mls @ 100 mls/hr IV Q24H [facility] Sodium Phosphate 30 mmole/ (Sodium Chloride) 260 mls @ 62 mls/hr IV ONETIME ONE Stop: 12/04/20 13:11 Last Admin: 12/04/20 10:26 Dose: 62 mls/hr Documented by: Sodium Phosphate 30 mmole/ (Sodium Chloride) 260 mls @ 62 mls/hr IV ONETIME ONE Stop: 12/05/20 16:41 Last Admin: 12/05/20 13:48 Dose: 62 mls/hr Documented by: Iopamidol (Iopamidol 755 Mg/Ml 500 Ml Multipack Bottle) 100 ml IVPUSH ONETIME STA Stop: 12/02/20 07:46 Last Admin: 12/02/20 07:55 Dose: 100 ml Documented by: Magnesium Sulfate (Magnesium Sulfate/Water 2 Gm/50 Ml Premix Bag) 2 gm IV ONETIME ONE Stop: 12/03/20 19:22 Last Admin: 12/03/20 20:12 Dose: 2 gm Documented by: Ondansetron HCl (Ondansetron 4 Mg/2 Ml Sdv) 4 mg IVPUSH ONETIME ONE Stop: 12/02/20 04:58 Last Admin: 12/02/20 05:05 Dose: 4 mg Documented by: Ondansetron HCl (Ondansetron 4 Mg/2 Ml Sdv) 4 mg IVPUSH ONETIME ONE Stop: 12/02/20 05:53 Last Admin: 12/02/20 06:47 Dose: Not Given Documented by: Sodium Chloride (Sodium Chloride 0.9% 10 Ml Syringe) 10 ml FLUSH ASDIRECTED PRN PRN Reason: Keep Vein Open Last Admin: 12/02/20 07:55 Dose: 10 ml Documented by: Sodium Chloride (Sodium Chloride 0.9% 2.5 Ml Syringe) 2.5 ml FLUSH ASDIRECTED PRN PRN Reason: Keep Vein Open Last Admin: 12/02/20 07:55 Dose: 2.5 ml Documented by: - Exam General: Alert, Oriented, Mild Distress Neck: Supple, Trachea Midline Lungs: Clear to Auscultation, Normal Respiratory Effort Cardiovascular: Regular Rate, Regular Rhythm, No Murmurs GI/Abdominal Exam: Soft, Distended, Rigid, Tender, Hepatomegaly - Patient Data Lab Results Last 24 hrs: Laboratory Results - last 24 hr 12/06/20 12/06/20 Range/Units 04:50 04:50 WBC 9.35 (4.0-11.0) K/uL RBC 3.30 L (4.50-5.90) M/uL Hgb 12.0 L (13.0-17.0) g/dL Hct 35.5 L (38.0-50.0) % MCV 107.6 H (80.0-98.0) fL MCH 36.4 H (27.0-32.0) pg MCHC 33.8 (31.0-37.0) g/dL RDW Std Deviation 56.1 (28.0-62.0) fl RDW Coeff of Kristina 14 (11.0-15.0) % Plt Count 216 (150-400) K/uL MPV 10.50 (7.40-12.00) fL Neut % (Auto) 73.2 (48.0-80.0) % Lymph % (Auto) 12.1 L (16.0-40.0) % [place] % (Auto) 10.5 (0.0-15.0) % Eos % (Auto) 3.9 (0.0-7.0) % Baso % (Auto) 0.3 (0.0-1.5) % Neut # (Auto) 6.9 H (1.4-5.7) K/uL Lymph # (Auto) 1.1 (0.6-2.4) K/uL [place] # (Auto) 1.0 H (0.0-0.8) K/uL Eos # (Auto) 0.4 (0.0-0.7) K/uL Baso # (Auto) 0.0 (0.0-0.1) K/uL Nucleated RBC % 0.0 /100WBC Nucleated RBCs # 0 K/uL Sodium 133 L (136-148) mmol/L Potassium 3.3 L (3.5-5.1) mmol/L Chloride 98 (98-107) mmol/L Carbon Dioxide 24.2 (21.0-32.0) mmol/L BUN 6 L (7.0-18.0) mg/dL Creatinine 0.8 (0.8-1.3) mg/dL Est Cr Clr Drug Dosing 132.56 mL/min Estimated GFR (MDRD) > 60.0 ml/min Glucose 77 (74-106) mg/dL Calcium 8.2 L (8.5-10.1) mg/dL Phosphorus 3.2 (2.6-4.7) mg/dL Magnesium 1.8 (1.8-2.4) mg/dL Total Bilirubin 1.7 H (0.2-1.0) mg/dL AST 70 H (15-37) IU/L ALT 59 (14-63) IU/L Alkaline Phosphatase 91 (46-116) U/L Total Protein 6.6 (6.4-8.2) g/dL Albumin 2.3 L (3.4-5.0) g/dL Globulin 4.3 H (2.6-4.0) g/dL Albumin/Globulin Ratio 0.5 L (0.9-1.6) Result Diagrams: 12/06/20 04:50 12/06/20 04:50 Sahil Results Last 24 hrs: Microbiology 12/02/20 06:05 Aerobic Blood Culture - Preliminary Blood - Venous - Lab Draw NO GROWTH AFTER 4 DAYS Anaerobic Blood Culture - Preliminary NO GROWTH AFTER 4 DAYS 12/02/20 05:55 Aerobic Blood Culture - Preliminary Blood - Venous NO GROWTH AFTER 4 DAYS Anaerobic Blood Culture - Preliminary NO GROWTH AFTER 4 DAYS 12/03/20 17:06 Urine Culture - Final Urine, Clean Catch No Growth Sepsis Event Note - Evaluation Sepsis Screening Result: No Definite Risk - Focused Exam Vital Signs: Vital Signs Temp Pulse Resp BP BP Pulse Ox 12/06/20 10:30 179/114 H 12/06/20 10:27 36.8 C 87 20 179/114 H 96 12/06/20 07:39 35.9 C L 97 22 H 161/112 H 97 12/06/20 04:26 37.1 C 92 18 167/105 H 97 12/06/20 01:00 37.0 C 95 17 165/100 H 97 - Problem List & Annotations (1) Hepatomegaly SNOMED Code(s): 71925382 Code(s): R16.0 - HEPATOMEGALY, NOT ELSEWHERE CLASSIFIED Status: Acute Current Visit: Yes (2) Acute alcoholic pancreatitis SNOMED Code(s): 839796221 Code(s): K85.20 - ALCOHOL INDUCED ACUTE PANCREATITIS WITHOUT NECROSIS OR INFCT Status: Acute Current Visit: Yes (3) Hyperbilirubinemia SNOMED Code(s): 86235432 Code(s): E80.6 - OTHER DISORDERS OF BILIRUBIN METABOLISM Status: Acute Current Visit: Yes (4) Transaminitis SNOMED Code(s): 226613360, 483723584 Code(s): R74.01 - ELEVATION OF LEVELS OF LIVER TRANSAMINASE LEVELS Status: Acute Current Visit: Yes (5) Alcohol abuse SNOMED Code(s): 29776237 Code(s): F10.10 - ALCOHOL ABUSE, UNCOMPLICATED Status: Chronic Current Visit: Yes (6) Tobacco use SNOMED Code(s): 352294831 Code(s): Z72.0 - TOBACCO USE Status: Chronic Current Visit: Yes - Problem List Review Problem List Initiated/Reviewed/Updated: Yes - My Orders Last 24 Hours: My Active Orders 12/06/20 10:02 Morphine 2 mg IVPUSH Q4H PRN 12/06/20 10:30 NS + KCl 20mEq/L [Normal Saline with 20 mEq KCl] 1,000 ml IV ONETIME amLODIPine [Norvasc] 5 mg PO DAILY - Plan Plan:: This 30-year-old male admitted with acute alcoholic pancreatitis 1. Acute alcoholic pancreatitis -Continue LR 200 mL/h -Dilaudid stopped, start morphine -Protonix daily -Counseling on alcohol sobriety. -cont clear liquid diet, instructed to eat in small portions -Hyperbilirubinemia and transaminitis improving steadily -Hypophosphatemia noted today will replace with 30 mmol sodium phosphate watch daily -Potassium and magnesium appears stable today recheck in a.m. 2. UTI -continue Rocephin 3. Alcohol abuse, alcoholic hepatitis: -Transaminitis improving -Thiamine, folic acid daily -CIWAA protocol with Ativan as needed VTE prophylaxis: Heparin GI prophylaxis: Protonix CODE STATUS: Full code Dispo: 2 to 4 days pending improvement.
[2020-12-06 11:30] LABS: HEMOGLOBIN A1C 5.2 %
[2020-12-06] MEDS: Morphine 2 MG/ML SYRINGE IVPUSH PRN ×3 (12:08→20:38)
[2020-12-06] MEDS: cefTRIAXone 1 GM in Premix Bag 1 BAG IV SCH (18:58)
[2020-12-06] MEDS: atorvaSTATin 20 MG Tab PO SCH (20:39)
[2020-12-07] MEDS: Morphine 2 MG/ML SYRINGE IVPUSH PRN ×3 (00:38→09:35)
[2020-12-07] MEDS: Lactated Ringers 1,000 ML IV SCH ×2 (03:09→08:50)
[2020-12-07] MEDS: Pantoprazole 40 MG in Sodium Chloride 0.9% 10 ML IV SCH (05:22)
[2020-12-07] MEDS: Heparin Sodium 5,000 Units/ML Vial SUBCUT SCH ×3 (05:23→21:31)
[2020-12-07 06:59] LABS: BLOOD UREA NITROGEN,BUN 4 mg/dL (7.0-18.0); CHLORIDE,CL 102 mmol/L (98-107); GLUCOSE RANDOM 100 mg/dL (74-106); POTASSIUM,K 3.2 mmol/L (3.5-5.1); SODIUM,NA 137 mmol/L (136-148)
[2020-12-07] MEDS: amLODIPine 5 MG Tab PO SCH (08:36)
[2020-12-07] MEDS: Folic Acid 50 MG/10 ML MDV SUBCUT SCH (08:36)
[2020-12-07] MEDS: Thiamine 100 MG in Sodium Chloride 0.9% 100 ML IV SCH (09:36)
[2020-12-07] MEDS ORDERED: Potassium Chloride 20 MEQ Tab.ER PO ONE (10:37)
--- NOTE | 2020-12-07 11:42 | PCM.PN ---
- General Info Date of Service: 12/07/20 Admission Dx/Problem (Free Text): Admission Diagnosis/Problem Admission Diagnosis/Problem Pancreatitis Subjective Update: tolerating clear diet well, no N/V pain is better - Review of Systems General: Reports: Weakness, Fatigue, Malaise. Denies: Fever Pulmonary: Denies: Shortness of Breath, Pleuritic Chest Pain Cardiovascular: Denies: Chest Pain, Palpitations, Dyspnea on Exertion Gastrointestinal: Reports: Abdominal Pain. Denies: Constipation, Decreased Appetite, Diarrhea, Hematochezia, Melena, Nausea, Vomiting Genitourinary: Denies: Dysuria, Frequency, Burning Musculoskeletal: Denies: Neck Pain, Shoulder Pain, Arm Pain Skin: Denies: Cyanosis, Jaundice, Mottled Neurological: Denies: Confusion, Dizziness, Headache - Patient Data Vitals - Most Recent: Last Vital Signs Temp 36.8 C 12/07/20 08:27 Pulse 90 12/07/20 08:27 Resp 16 12/07/20 08:27 BP 167/115 H 12/07/20 08:36 Pulse Ox 96 12/07/20 08:27 Weight - Most Recent: 100.244 kg I&O - Last 24 Hours: Intake & Output 12/06/20 12/07/20 12/07/20 22:59 06:59 14:59 Intake Total 2273 1918 Output Total 4300 4350 Balance -2026 Lab Results Last 24 Hours: Laboratory Results - last 24 hr 12/06/20 12/07/20 12/07/20 Range/Units 04:50 06:13 06:13 WBC 7.93 (4.0-11.0) K/uL RBC 3.39 L (4.50-5.90) M/uL Hgb 12.7 L (13.0-17.0) g/dL Hct 36.5 L (38.0-50.0) % MCV 107.7 H (80.0-98.0) fL MCH 37.5 H (27.0-32.0) pg MCHC 34.8 (31.0-37.0) g/dL RDW Std Deviation 56.1 (28.0-62.0) fl RDW Coeff of Kristina 14 (11.0-15.0) % Plt Count 231 (150-400) K/uL MPV 10.50 (7.40-12.00) fL Neut % (Auto) 69.0 (48.0-80.0) % Lymph % (Auto) 16.4 (16.0-40.0) % [place] % (Auto) 11.7 (0.0-15.0) % Eos % (Auto) 2.3 (0.0-7.0) % Baso % (Auto) 0.6 (0.0-1.5) % Neut # (Auto) 5.5 (1.4-5.7) K/uL Lymph # (Auto) 1.3 (0.6-2.4) K/uL [place] # (Auto) 0.9 H (0.0-0.8) K/uL Eos # (Auto) 0.2 (0.0-0.7) K/uL Baso # (Auto) 0.1 (0.0-0.1) K/uL Nucleated RBC % 0.0 /100WBC Nucleated RBCs # 0 K/uL Sodium 137 (136-148) mmol/L Potassium 3.2 L (3.5-5.1) mmol/L Chloride 102 (98-107) mmol/L Carbon Dioxide 23.0 (21.0-32.0) mmol/L BUN 4 L (7.0-18.0) mg/dL Creatinine 0.8 (0.8-1.3) mg/dL Est Cr Clr Drug Dosing 132.56 mL/min Estimated GFR (MDRD) > 60.0 ml/min Glucose 100 (74-106) mg/dL Calcium 8.6 (8.5-10.1) mg/dL Phosphorus 3.2 (2.6-4.7) mg/dL Magnesium 2.1 (1.8-2.4) mg/dL Total Bilirubin 1.1 H (0.2-1.0) mg/dL AST 64 H (15-37) IU/L ALT 52 (14-63) IU/L Alkaline Phosphatase 90 (46-116) U/L Total Protein 6.5 (6.4-8.2) g/dL Albumin 2.2 L (3.4-5.0) g/dL Globulin 4.3 H (2.6-4.0) g/dL Albumin/Globulin Ratio 0.5 L (0.9-1.6) TSH 3rd Generation 8.56 H (0.36-3.74) uIU/mL Sahil Results Last 24 Hours: Microbiology 12/02/20 06:05 Aerobic Blood Culture - Final Blood - Venous - Lab Draw NO GROWTH AFTER 5 DAYS Anaerobic Blood Culture - Final NO GROWTH AFTER 5 DAYS 12/02/20 05:55 Aerobic Blood Culture - Final Blood - Venous NO GROWTH AFTER 5 DAYS Anaerobic Blood Culture - Final NO GROWTH AFTER 5 DAYS Med Orders - Current: Current Medications Amlodipine Besylate (Amlodipine 5 Mg Tab) 5 mg PO DAILY [facility] Last Admin: 12/07/20 08:36 Dose: 5 mg Documented by: Atorvastatin Calcium (Atorvastatin 20 Mg Tab) 20 mg PO BEDTIME [facility] Last Admin: 12/06/20 20:39 Dose: 20 mg Documented by: Folic Acid (Folic Acid 50 Mg/10 Ml Mdv) 1 mg SUBCUT DAILY [facility] Last Admin: 12/07/20 08:36 Dose: 1 mg Documented by: Heparin Sodium (Porcine) (Heparin Sodium 5,000 Units/Ml Vial) 5,000 units SUBCUT Q8H [facility] Last Admin: 12/07/20 05:23 Dose: 5,000 units Documented by: Pantoprazole Sodium 40 mg/ (Sodium Chloride) 10 mls @ 300 mls/hr IV Q24H [facility] Last Admin: 12/07/20 05:22 Dose: 300 mls/hr Documented by: Thiamine HCl 100 mg/ Sodium (Chloride) 101 mls @ 202 mls/hr IV DAILY [facility] Last Admin: 12/07/20 09:36 Dose: 202 mls/hr Documented by: Ceftriaxone Sodium/Dextrose 1 (gm/ Premix) 50 mls @ 100 mls/hr IV Q24H [facility] Last Admin: 12/06/20 18:58 Dose: 100 mls/hr Documented by: Lorazepam (Lorazepam 2 Mg/Ml Sdv) 0 mg IVPUSH Q2H PRN; Protocol PRN Reason: CIWAA Last Admin: 12/06/20 18:43 Dose: 1 mg Documented by: Ondansetron HCl (Ondansetron 4 Mg/2 Ml Sdv) 4 mg IVPUSH Q4H PRN PRN Reason: Nausea Last Admin: 12/06/20 12:52 Dose: 4 mg Documented by: Oxycodone HCl (Oxycodone 5 Mg Tab) 5 mg PO Q8H PRN PRN Reason: Pain Sodium Chloride (Sodium Chloride 0.9% 2.5 Ml Syringe) 2.5 ml FLUSH ASDIRECTED PRN PRN Reason: Keep Vein Open Last Admin: 12/06/20 12:53 Dose: 2.5 ml Documented by: Discontinued Medications Hydromorphone HCl (Hydromorphone 1 Mg/Ml Syringe) 1 mg IVPUSH ONETIME ONE Stop: 12/02/20 05:53 Last Admin: 12/02/20 05:57 Dose: 1 mg Documented by: Hydromorphone HCl (Hydromorphone 1 Mg/Ml Syringe) 1 mg IVPUSH ONETIME ONE Stop: 12/02/20 07:40 Last Admin: 12/02/20 07:54 Dose: 1 mg Documented by: Hydromorphone HCl (Hydromorphone 1 Mg/Ml Syringe) 1 mg IVPUSH Q2H PRN PRN Reason: Pain Last Admin: 12/02/20 12:22 Dose: 1 mg Documented by: Hydromorphone HCl (Hydromorphone 1 Mg/Ml Syringe) 1 mg IVPUSH ONETIME ONE Stop: 12/02/20 13:36 Last Admin: 12/02/20 13:54 Dose: 1 mg Documented by: Hydromorphone HCl (Hydromorphone 2 Mg/Ml Syringe) 2 mg IVPUSH Q2H PRN PRN Reason: Pain Last Admin: 12/06/20 08:49 Dose: 2 mg Documented by: Pantoprazole Sodium 40 mg/ (Sodium Chloride) 10 mls @ 300 mls/hr IV NOW ONE Stop: 12/02/20 04:58 Last Admin: 12/02/20 05:06 Dose: 300 mls/hr Documented by: Cefoxitin Sodium 2 gm/ Sodium (Chloride) 100 mls @ 200 mls/hr IV ONETIME ONE Stop: 12/02/20 06:10 Last Admin: 12/02/20 05:46 Dose: Not Given Documented by: Sodium Chloride (Normal Saline) 1,000 mls @ 1,000 mls/hr IV .Bolus ONE Stop: 12/02/20 06:41 Last Admin: 12/02/20 05:53 Dose: 1,000 mls/hr Documented by: Cefoxitin Sodium 2 gm/ Premix 50 mls @ 100 mls/hr IV ONETIME ONE Stop: 12/02/20 06:15 Last Admin: 12/02/20 05:54 Dose: 100 mls/hr Documented by: Sodium Chloride (Normal Saline) 1,000 mls @ 1,000 mls/hr IV .Bolus ONE Stop: 12/02/20 07:42 Last Admin: 12/02/20 07:54 Dose: 1,000 mls/hr Documented by: Lactated Ringer's (Ringers, Lactated) 1,000 mls @ 999 mls/hr IV .BOLUS ONE Stop: 12/02/20 10:46 Last Admin: 12/02/20 10:09 Dose: 999 mls/hr Documented by: Lactated Ringer's (Ringers, Lactated) 1,000 mls @ 999 mls/hr IV .BOLUS ONE Stop: 12/02/20 11:10 Last Admin: 12/02/20 11:16 Dose: 999 mls/hr Documented by: Lactated Ringer's (Ringers, Lactated) 1,000 mls @ 200 mls/hr IV Q5H [facility] Last Admin: 12/04/20 08:36 Dose: Not Given Documented by: Magnesium Sulfate (Magnesium Sulfate In Water 2 Gm/50 Ml) 2 gm in 50 mls @ 50 mls/hr IV ONETIME ONE Stop: 12/03/20 11:44 Last Admin: 12/03/20 10:54 Dose: 50 mls/hr Documented by: Ceftriaxone Sodium 1 gm/ (Sodium Chloride) 50 mls @ 100 mls/hr IV Q24H [facility] Sodium Phosphate 30 mmole/ (Sodium Chloride) 260 mls @ 62 mls/hr IV ONETIME ONE Stop: 12/04/20 13:11 Last Admin: 12/04/20 10:26 Dose: 62 mls/hr Documented by: Lactated Ringer's (Ringers, Lactated) 1,000 mls @ 200 mls/hr IV ASDIRECTED [facility] Last Admin: 12/07/20 08:50 Dose: 200 mls/hr Documented by: Sodium Phosphate 30 mmole/ (Sodium Chloride) 260 mls @ 62 mls/hr IV ONETIME ONE Stop: 12/05/20 16:41 Last Admin: 12/05/20 13:48 Dose: 62 mls/hr Documented by: Potassium Chloride/Sodium Chloride (Normal Saline With 20 Meq Kcl) 1,000 mls @ 500 mls/hr IV ONETIME [facility] Last Admin: 12/06/20 12:19 Dose: 500 mls/hr Documented by: Iopamidol (Iopamidol 755 Mg/Ml 500 Ml Multipack Bottle) 100 ml IVPUSH ONETIME STA Stop: 12/02/20 07:46 Last Admin: 12/02/20 07:55 Dose: 100 ml Documented by: Magnesium Sulfate (Magnesium Sulfate/Water 2 Gm/50 Ml Premix Bag) 2 gm IV ONETIME ONE Stop: 12/03/20 19:22 Last Admin: 12/03/20 20:12 Dose: 2 gm Documented by: Morphine Sulfate (Morphine 2 Mg/Ml Syringe) 2 mg IVPUSH Q4H PRN PRN Reason: Pain (severe 7-10) Last Admin: 12/07/20 09:35 Dose: 2 mg Documented by: Ondansetron HCl (Ondansetron 4 Mg/2 Ml Sdv) 4 mg IVPUSH ONETIME ONE Stop: 12/02/20 04:58 Last Admin: 12/02/20 05:05 Dose: 4 mg Documented by: Ondansetron HCl (Ondansetron 4 Mg/2 Ml Sdv) 4 mg IVPUSH ONETIME ONE Stop: 12/02/20 05:53 Last Admin: 12/02/20 06:47 Dose: Not Given Documented by: Potassium Chloride (Potassium Chloride 20 Meq Tab.Er) 40 meq PO ONETIME ONE Stop: 12/07/20 10:38 Sodium Chloride (Sodium Chloride 0.9% 10 Ml Syringe) 10 ml FLUSH ASDIRECTED PRN PRN Reason: Keep Vein Open Last Admin: 12/02/20 07:55 Dose: 10 ml Documented by: Sodium Chloride (Sodium Chloride 0.9% 2.5 Ml Syringe) 2.5 ml FLUSH ASDIRECTED PRN PRN Reason: Keep Vein Open Last Admin: 12/02/20 07:55 Dose: 2.5 ml Documented by: - Exam Quality Assessment: Supplemental Oxygen General: Alert, Oriented, Cooperative, Mild Distress Lungs: Clear to Auscultation, Normal Respiratory Effort Cardiovascular: Regular Rate, Regular Rhythm GI/Abdominal Exam: Normal Bowel Sounds, Soft, Distended, Guarding - Patient Data Lab Results Last 24 hrs: Laboratory Results - last 24 hr 12/06/20 12/07/20 12/07/20 Range/Units 04:50 06:13 06:13 WBC 7.93 (4.0-11.0) K/uL RBC 3.39 L (4.50-5.90) M/uL Hgb 12.7 L (13.0-17.0) g/dL Hct 36.5 L (38.0-50.0) % MCV 107.7 H (80.0-98.0) fL MCH 37.5 H (27.0-32.0) pg MCHC 34.8 (31.0-37.0) g/dL RDW Std Deviation 56.1 (28.0-62.0) fl RDW Coeff of Kristina 14 (11.0-15.0) % Plt Count 231 (150-400) K/uL MPV 10.50 (7.40-12.00) fL Neut % (Auto) 69.0 (48.0-80.0) % Lymph % (Auto) 16.4 (16.0-40.0) % [place] % (Auto) 11.7 (0.0-15.0) % Eos % (Auto) 2.3 (0.0-7.0) % Baso % (Auto) 0.6 (0.0-1.5) % Neut # (Auto) 5.5 (1.4-5.7) K/uL Lymph # (Auto) 1.3 (0.6-2.4) K/uL [place] # (Auto) 0.9 H (0.0-0.8) K/uL Eos # (Auto) 0.2 (0.0-0.7) K/uL Baso # (Auto) 0.1 (0.0-0.1) K/uL Nucleated RBC % 0.0 /100WBC Nucleated RBCs # 0 K/uL Sodium 137 (136-148) mmol/L Potassium 3.2 L (3.5-5.1) mmol/L Chloride 102 (98-107) mmol/L Carbon Dioxide 23.0 (21.0-32.0) mmol/L BUN 4 L (7.0-18.0) mg/dL Creatinine 0.8 (0.8-1.3) mg/dL Est Cr Clr Drug Dosing 132.56 mL/min Estimated GFR (MDRD) > 60.0 ml/min Glucose 100 (74-106) mg/dL Calcium 8.6 (8.5-10.1) mg/dL Phosphorus 3.2 (2.6-4.7) mg/dL Magnesium 2.1 (1.8-2.4) mg/dL Total Bilirubin 1.1 H (0.2-1.0) mg/dL AST 64 H (15-37) IU/L ALT 52 (14-63) IU/L Alkaline Phosphatase 90 (46-116) U/L Total Protein 6.5 (6.4-8.2) g/dL Albumin 2.2 L (3.4-5.0) g/dL Globulin 4.3 H (2.6-4.0) g/dL Albumin/Globulin Ratio 0.5 L (0.9-1.6) TSH 3rd Generation 8.56 H (0.36-3.74) uIU/mL Result Diagrams: 12/07/20 06:13 12/07/20 06:13 Sahil Results Last 24 hrs: Microbiology 12/02/20 06:05 Aerobic Blood Culture - Final Blood - Venous - Lab Draw NO GROWTH AFTER 5 DAYS Anaerobic Blood Culture - Final NO GROWTH AFTER 5 DAYS 12/02/20 05:55 Aerobic Blood Culture - Final Blood - Venous NO GROWTH AFTER 5 DAYS Anaerobic Blood Culture - Final NO GROWTH AFTER 5 DAYS Sepsis Event Note - Evaluation Sepsis Screening Result: No Definite Risk - Focused Exam Vital Signs: Vital Signs Temp Pulse Resp BP BP BP Pulse Ox 12/07/20 08:36 167/115 H 12/07/20 08:27 36.8 C 90 16 167/115 H 96 12/07/20 05:34 36.4 C 97 18 160/98 H 99 12/07/20 00:00 36.9 C 96 18 165/109 H 96 - Problem List & Annotations (1) Hepatomegaly SNOMED Code(s): 91015490 Code(s): R16.0 - HEPATOMEGALY, NOT ELSEWHERE CLASSIFIED Status: Acute Current Visit: Yes (2) Acute alcoholic pancreatitis SNOMED Code(s): 079671900 Code(s): K85.20 - ALCOHOL INDUCED ACUTE PANCREATITIS WITHOUT NECROSIS OR INFCT Status: Acute Current Visit: Yes (3) Hyperbilirubinemia SNOMED Code(s): 18610919 Code(s): E80.6 - OTHER DISORDERS OF BILIRUBIN METABOLISM Status: Acute C urrent Visit: Yes (4) Transaminitis SNOMED Code(s): 728404886, 568806361 Code(s): R74.01 - ELEVATION OF LEVELS OF LIVER TRANSAMINASE LEVELS Status: Acute Current Visit: Yes (5) Alcohol abuse SNOMED Code(s): 08825475 Code(s): F10.10 - ALCOHOL ABUSE, UNCOMPLICATED Status: Chronic Current Visit: Yes (6) Tobacco use SNOMED Code(s): 564591490 Code(s): Z72.0 - TOBACCO USE Status: Chronic Current Visit: Yes - Problem List Review Problem List Initiated/Reviewed/Updated: Yes - My Orders Last 24 Hours: My Active Orders 12/06/20 21:00 atorvaSTATin [Lipitor] 20 mg PO BEDTIME - Plan Plan:: This 30-year-old male admitted with acute alcoholic pancreatitis 1. Acute alcoholic pancreatitis -stop IV fluids -Dilaudid and morphine stopped, start PO oxycodone for pain control -Protonix daily -Counseling on alcohol sobriety. -advance to soft diet, instructed to eat in small portions -Hyperbilirubinemia and transaminitis improving steadily 2. UTI -continue Rocephin 3. Alcohol abuse, alcoholic hepatitis: -Transaminitis improving -Thiamine, folic acid daily -CIWAA protocol with Ativan as needed VTE prophylaxis: Heparin GI prophylaxis: Protonix CODE STATUS: Full code Dispo: 2 to 4 days pending improvement.
[2020-12-07] MEDS: oxyCODONE 5 MG Tab PO PRN ×2 (13:54→22:02)
[2020-12-07] MEDS: cefTRIAXone 1 GM in Premix Bag 1 BAG IV SCH (18:39)
[2020-12-07] MEDS: atorvaSTATin 20 MG Tab PO SCH (21:31)
[2020-12-08] MEDS: oxyCODONE 5 MG Tab PO PRN ×3 (06:08→22:20)
[2020-12-08] MEDS: Heparin Sodium 5,000 Units/ML Vial SUBCUT SCH ×3 (06:09→22:19)
[2020-12-08] MEDS: Pantoprazole 40 MG in Sodium Chloride 0.9% 10 ML IV SCH (06:09)
[2020-12-08 06:29] LABS: BLOOD UREA NITROGEN,BUN 5 mg/dL (7.0-18.0); CHLORIDE,CL 102 mmol/L (98-107); GLUCOSE RANDOM 102 mg/dL (74-106); POTASSIUM,K 3.4 mmol/L (3.5-5.1); SODIUM,NA 138 mmol/L (136-148)
[2020-12-08 06:37] LABS: CARBON DIOXIDE,CO2 23.6 mmol/L (21.0-32.0)
[2020-12-08] MEDS ORDERED: Potassium Chloride 20 MEQ Tab.ER PO ONE (09:30)
[2020-12-08] MEDS: amLODIPine 5 MG Tab PO SCH (09:45)
[2020-12-08] MEDS: Folic Acid 50 MG/10 ML MDV SUBCUT SCH (09:46)
[2020-12-08] MEDS: Thiamine 100 MG in Sodium Chloride 0.9% 100 ML IV SCH (09:47)
--- NOTE | 2020-12-08 12:49 | PCM.PN ---
- General Info Date of Service: 12/08/20 Admission Dx/Problem (Free Text): Admission Diagnosis/Problem Admission Diagnosis/Problem Pancreatitis Subjective Update: tolerating soft diet, c/o pressure like pain in addomen , feels he is withdrawing from opiates - Review of Systems General: Reports: Weakness, Fatigue. Denies: Fever Pulmonary: Denies: Shortness of Breath, Pleuritic Chest Pain Cardiovascular: Denies: Chest Pain, Palpitations, Dyspnea on Exertion Gastrointestinal: Reports: Abdominal Pain. Denies: Constipation, Decreased Appetite, Diarrhea, Difficulty Swallowing, Melena, Nausea, Vomiting Genitourinary: Denies: Dysuria, Frequency Musculoskeletal: Denies: Neck Pain, Shoulder Pain, Arm Pain Skin: Denies: Cyanosis, Jaundice, Mottled - Patient Data Vitals - Most Recent: Last Vital Signs Temp 36.4 C 12/08/20 12:28 Pulse 93 12/08/20 12:28 Resp 14 12/08/20 12:28 BP 146/103 H 12/08/20 12:28 Pulse Ox 94 L 12/08/20 12:28 Weight - Most Recent: 100.244 kg I&O - Last 24 Hours: Intake & Output 12/07/20 12/08/20 12/08/20 22:59 06:59 14:59 Intake Total 900 850 Output Total 2175 1400 Balance -1275 -550 Lab Results Last 24 Hours: Laboratory Results - last 24 hr 12/08/20 12/08/20 Range/Units 05:26 05:26 WBC 9.35 (4.0-11.0) K/uL RBC 3.80 L (4.50-5.90) M/uL Hgb 14.0 (13.0-17.0) g/dL Hct 40.8 (38.0-50.0) % MCV 107.4 H (80.0-98.0) fL MCH 36.8 H (27.0-32.0) pg MCHC 34.3 (31.0-37.0) g/dL RDW Std Deviation 56.2 (28.0-62.0) fl RDW Coeff of Kristina 14 (11.0-15.0) % Plt Count 291 (150-400) K/uL MPV 10.90 (7.40-12.00) fL Neut % (Auto) 65.6 (48.0-80.0) % Lymph % (Auto) 17.2 (16.0-40.0) % [place] % (Auto) 13.0 (0.0-15.0) % Eos % (Auto) 3.5 (0.0-7.0) % Baso % (Auto) 0.7 (0.0-1.5) % Neut # (Auto) 6.1 H (1.4-5.7) K/uL Lymph # (Auto) 1.6 (0.6-2.4) K/uL [place] # (Auto) 1.2 H (0.0-0.8) K/uL Eos # (Auto) 0.3 (0.0-0.7) K/uL Baso # (Auto) 0.1 (0.0-0.1) K/uL Nucleated RBC % 0.0 /100WBC Nucleated RBCs # 0 K/uL Sodium 138 (136-148) mmol/L Potassium 3.4 L (3.5-5.1) mmol/L Chloride 102 (98-107) mmol/L Carbon Dioxide 23.6 (21.0-32.0) mmol/L BUN 5 L (7.0-18.0) mg/dL Creatinine 0.9 (0.8-1.3) mg/dL Est Cr Clr Drug Dosing 117.83 mL/min Estimated GFR (MDRD) > 60.0 ml/min Glucose 102 (74-106) mg/dL Calcium 8.7 (8.5-10.1) mg/dL Phosphorus 3.5 (2.6-4.7) mg/dL Magnesium 2.2 (1.8-2.4) mg/dL Total Bilirubin 0.9 (0.2-1.0) mg/dL AST 52 H (15-37) IU/L ALT 54 (14-63) IU/L Alkaline Phosphatase 90 (46-116) U/L Total Protein 7.2 (6.4-8.2) g/dL Albumin 2.5 L (3.4-5.0) g/dL Globulin 4.7 H (2.6-4.0) g/dL Albumin/Globulin Ratio 0.5 L (0.9-1.6) Med Orders - Current: Current Medications Amlodipine Besylate (Amlodipine 5 Mg Tab) 10 mg PO DAILY [facility] Last Admin: 12/08/20 09:45 Dose: 10 mg Documented by: Atorvastatin Calcium (Atorvastatin 20 Mg Tab) 20 mg PO BEDTIME [facility] Last Admin: 12/07/20 21:31 Dose: 20 mg Documented by: Folic Acid (Folic Acid 50 Mg/10 Ml Mdv) 1 mg SUBCUT DAILY [facility] Last Admin: 12/08/20 09:46 Dose: 1 mg Documented by: Heparin Sodium (Porcine) (Heparin Sodium 5,000 Units/Ml Vial) 5,000 units SUBCUT Q8H [facility] Last Admin: 12/08/20 06:09 Dose: 5,000 units Documented by: Pantoprazole Sodium 40 mg/ (Sodium Chloride) 10 mls @ 300 mls/hr IV Q24H [facility] Last Admin: 12/08/20 06:09 Dose: 300 mls/hr Documented by: Thiamine HCl 100 mg/ Sodium (Chloride) 101 mls @ 202 mls/hr IV DAILY [facility] Last Admin: 12/08/20 09:47 Dose: 202 mls/hr Documented by: Ceftriaxone Sodium/Dextrose 1 (gm/ Premix) 50 mls @ 100 mls/hr IV Q24H [facility] Last Admin: 12/07/20 18:39 Dose: 100 mls/hr Documented by: Lorazepam (Lorazepam 2 Mg/Ml Sdv) 0 mg IVPUSH Q2H PRN; Protocol PRN Reason: CIWAA Last Admin: 12/06/20 18:43 Dose: 1 mg Documented by: Ondansetron HCl (Ondansetron 4 Mg/2 Ml Sdv) 4 mg IVPUSH Q4H PRN PRN Reason: Nausea Last Admin: 12/06/20 12:52 Dose: 4 mg Documented by: Oxycodone HCl (Oxycodone 5 Mg Tab) 5 mg PO Q8H PRN PRN Reason: Pain Last Admin: 12/08/20 06:08 Dose: 5 mg Documented by: Sodium Chloride (Sodium Chloride 0.9% 2.5 Ml Syringe) 2.5 ml FLUSH ASDIRECTED PRN PRN Reason: Keep Vein Open Last Admin: 12/06/20 12:53 Dose: 2.5 ml Documented by: Discontinued Medications Amlodipine Besylate (Amlodipine 5 Mg Tab) 5 mg PO DAILY [facility] Last Admin: 12/07/20 08:36 Dose: 5 mg Documented by: Hydromorphone HCl (Hydromorphone 1 Mg/Ml Syringe) 1 mg IVPUSH ONETIME ONE Stop: 12/02/20 05:53 Last Admin: 12/02/20 05:57 Dose: 1 mg Documented by: Hydromorphone HCl (Hydromorphone 1 Mg/Ml Syringe) 1 mg IVPUSH ONETIME ONE Stop: 12/02/20 07:40 Last Admin: 12/02/20 07:54 Dose: 1 mg Documented by: Hydromorphone HCl (Hydromorphone 1 Mg/Ml Syringe) 1 mg IVPUSH Q2H PRN PRN Reason: Pain Last Admin: 12/02/20 12:22 Dose: 1 mg Documented by: Hydromorphone HCl (Hydromorphone 1 Mg/Ml Syringe) 1 mg IVPUSH ONETIME ONE Stop: 12/02/20 13:36 Last Admin: 12/02/20 13:54 Dose: 1 mg Documented by: Hydromorphone HCl (Hydromorphone 2 Mg/Ml Syringe) 2 mg IVPUSH Q2H PRN PRN Reason: Pain Last Admin: 12/06/20 08:49 Dose: 2 mg Documented by: Pantoprazole Sodium 40 mg/ (Sodium Chloride) 10 mls @ 300 mls/hr IV NOW ONE Stop: 12/02/20 04:58 Last Admin: 12/02/20 05:06 Dose: 300 mls/hr Documented by: Cefoxitin Sodium 2 gm/ Sodium (Chloride) 100 mls @ 200 mls/hr IV ONETIME ONE Stop: 12/02/20 06:10 Last Admin: 12/02/20 05:46 Dose: Not Given Documented by: Sodium Chloride (Normal Saline) 1,000 mls @ 1,000 mls/hr IV .Bolus ONE Stop: 12/02/20 06:41 Last Admin: 12/02/20 05:53 Dose: 1,000 mls/hr Documented by: Cefoxitin Sodium 2 gm/ Premix 50 mls @ 100 mls/hr IV ONETIME ONE Stop: 12/02/20 06:15 Last Admin: 12/02/20 05:54 Dose: 100 mls/hr Documented by: Sodium Chloride (Normal Saline) 1,000 mls @ 1,000 mls/hr IV .Bolus ONE Stop: 12/02/20 07:42 Last Admin: 12/02/20 07:54 Dose: 1,000 mls/hr Documented by: Lactated Ringer's (Ringers, Lactated) 1,000 mls @ 999 mls/hr IV .BOLUS ONE Stop: 12/02/20 10:46 Last Admin: 12/02/20 10:09 Dose: 999 mls/hr Documented by: Lactated Ringer's (Ringers, Lactated) 1,000 mls @ 999 mls/hr IV .BOLUS ONE Stop: 12/02/20 11:10 Last Admin: 12/02/20 11:16 Dose: 999 mls/hr Documented by: Lactated Ringer's (Ringers, Lactated) 1,000 mls @ 200 mls/hr IV Q5H [facility] Last Admin: 12/04/20 08:36 Dose: Not Given Documented by: Magnesium Sulfate (Magnesium Sulfate In Water 2 Gm/50 Ml) 2 gm in 50 mls @ 50 mls/hr IV ONETIME ONE Stop: 12/03/20 11:44 Last Admin: 12/03/20 10:54 Dose: 50 mls/hr Documented by: Ceftriaxone Sodium 1 gm/ (Sodium Chloride) 50 mls @ 100 mls/hr IV Q24H [facility] Sodium Phosphate 30 mmole/ (Sodium Chloride) 260 mls @ 62 mls/hr IV ONETIME ONE Stop: 12/04/20 13:11 Last Admin: 12/04/20 10:26 Dose: 62 mls/hr Documented by: Lactated Ringer's (Ringers, Lactated) 1,000 mls @ 200 mls/hr IV ASDIRECTED [facility] Last Admin: 12/07/20 08:50 Dose: 200 mls/hr Documented by: Sodium Phosphate 30 mmole/ (Sodium Chloride) 260 mls @ 62 mls/hr IV ONETIME ONE Stop: 12/05/20 16:41 Last Admin: 12/05/20 13:48 Dose: 62 mls/hr Documented by: Potassium Chloride/Sodium Chloride (Normal Saline With 20 Meq Kcl) 1,000 mls @ 500 mls/hr IV ONETIME [facility] Last Admin: 12/06/20 12:19 Dose: 500 mls/hr Documented by: Iopamidol (Iopamidol 755 Mg/Ml 500 Ml Multipack Bottle) 100 ml IVPUSH ONETIME STA Stop: 12/02/20 07:46 Last Admin: 12/02/20 07:55 Dose: 100 ml Documented by: Magnesium Sulfate (Magnesium Sulfate/Water 2 Gm/50 Ml Premix Bag) 2 gm IV ONETIME ONE Stop: 12/03/20 19:22 Last Admin: 12/03/20 20:12 Dose: 2 gm Documented by: Morphine Sulfate (Morphine 2 Mg/Ml Syringe) 2 mg IVPUSH Q4H PRN PRN Reason: Pain (severe 7-10) Last Admin: 12/07/20 09:35 Dose: 2 mg Documented by: Ondansetron HCl (Ondansetron 4 Mg/2 Ml Sdv) 4 mg IVPUSH ONETIME ONE Stop: 12/02/20 04:58 Last Admin: 12/02/20 05:05 Dose: 4 mg Documented by: Ondansetron HCl (Ondansetron 4 Mg/2 Ml Sdv) 4 mg IVPUSH ONETIME ONE Stop: 12/02/20 05:53 Last Admin: 12/02/20 06:47 Dose: Not Given Documented by: Potassium Chloride (Potassium Chloride 20 Meq Tab.Er) 40 meq PO ONETIME ONE Stop: 12/07/20 10:38 Last Admin: 12/07/20 11:56 Dose: 40 meq Documented by: Potassium Chloride (Potassium Chloride 20 Meq Tab.Er) 40 meq PO ONETIME ONE Stop: 12/08/20 09:31 Last Admin: 12/08/20 09:46 Dose: 40 meq Documented by: Sodium Chloride (Sodium Chloride 0.9% 10 Ml Syringe) 10 ml FLUSH ASDIRECTED PRN PRN Reason: Keep Vein Open Last Admin: 12/02/20 07:55 Dose: 10 ml Documented by: Sodium Chloride (Sodium Chloride 0.9% 2.5 Ml Syringe) 2.5 ml FLUSH ASDIRECTED PRN PRN Reason: Keep Vein Open Last Admin: 12/02/20 07:55 Dose: 2.5 ml Documented by: - Exam General: Alert, Oriented Neck: Supple Lungs: Clear to Auscultation, Normal Respiratory Effort Cardiovascular: Regular Rate, Regular Rhythm GI/Abdominal Exam: Normal Bowel Sounds, Soft, Distended, Tender, Hepatomegaly - Patient Data Lab Results Last 24 hrs: Laboratory Results - last 24 hr 12/08/20 12/08/20 Range/Units 05:26 05:26 WBC 9.35 (4.0-11.0) K/uL RBC 3.80 L (4.50-5.90) M/uL Hgb 14.0 (13.0-17.0) g/dL Hct 40.8 (38.0-50.0) % MCV 107.4 H (80.0-98.0) fL MCH 36.8 H (27.0-32.0) pg MCHC 34.3 (31.0-37.0) g/dL RDW Std Deviation 56.2 (28.0-62.0) fl RDW Coeff of Kristina 14 (11.0-15.0) % Plt Count 291 (150-400) K/uL MPV 10.90 (7.40-12.00) fL Neut % (Auto) 65.6 (48.0-80.0) % Lymph % (Auto) 17.2 (16.0-40.0) % [place] % (Auto) 13.0 (0.0-15.0) % Eos % (Auto) 3.5 (0.0-7.0) % Baso % (Auto) 0.7 (0.0-1.5) % Neut # (Auto) 6.1 H (1.4-5.7) K/uL Lymph # (Auto) 1.6 (0.6-2.4) K/uL [place] # (Auto) 1.2 H (0.0-0.8) K/uL Eos # (Auto) 0.3 (0.0-0.7) K/uL Baso # (Auto) 0.1 (0.0-0.1) K/uL Nucleated RBC % 0.0 /100WBC Nucleated RBCs # 0 K/uL Sodium 138 (136-148) mmol/L Potassium 3.4 L (3.5-5.1) mmol/L Chloride 102 (98-107) mmol/L Carbon Dioxide 23.6 (21.0-32.0) mmol/L BUN 5 L (7.0-18.0) mg/dL Creatinine 0.9 (0.8-1.3) mg/dL Est Cr Clr Drug Dosing 117.83 mL/min Estimated GFR (MDRD) > 60.0 ml/min Glucose 102 (74-106) mg/dL Calcium 8.7 (8.5-10.1) mg/dL Phosphorus 3.5 (2.6-4.7) mg/dL Magnesium 2.2 (1.8-2.4) mg/dL Total Bilirubin 0.9 (0.2-1.0) mg/dL AST 52 H (15-37) IU/L ALT 54 (14-63) IU/L Alkaline Phosphatase 90 (46-116) U/L Total Protein 7.2 (6.4-8.2) g/dL Albumin 2.5 L (3.4-5.0) g/dL Globulin 4.7 H (2.6-4.0) g/dL Albumin/Globulin Ratio 0.5 L (0.9-1.6) Result Diagrams: 12/08/20 05:26 12/08/20 05:26 Sepsis Event Note - Evaluation Sepsis Screening Result: No Definite Risk - Focused Exam Vital Signs: Vital Signs Temp Pulse Resp BP BP BP Pulse Ox 12/08/20 12:28 36.4 C 93 14 146/103 H 94 L 12/08/20 09:58 36.7 C 81 14 145/102 H 94 L 12/08/20 09:45 145/102 H 12/08/20 04:57 36.9 C 93 18 160/110 H 96 - Problem List & Annotations (1) Hepatomegaly SNOMED Code(s): 44701532 Code(s): R16.0 - HEPATOMEGALY, NOT ELSEWHERE CLASSIFIED Status: Acute Current Visit: Yes (2) Acute alcoholic pancreatitis SNOMED Code(s): 656099252 Code(s): K85.20 - ALCOHOL INDUCED ACUTE PANCREATITIS WITHOUT NECROSIS OR INFCT Status: Acute Current Visit: Yes (3) Hyperbilirubinemia SNOMED Code(s): 68342709 Code(s): E80.6 - OTHER DISORDERS OF BILIRUBIN METABOLISM Status: Acute Current Visit: Yes (4) Transaminitis SNOMED Code(s): 712784026, 327605621 Code(s): R74.01 - ELEVATION OF LEVELS OF LIVER TRANSAMINASE LEVELS Status: Acute Current Visit: Yes (5) Alcohol abuse SNOMED Code(s): 78795563 Code(s): F10.10 - ALCOHOL ABUSE, UNCOMPLICATED Status: Chronic Current Visit: Yes (6) Tobacco use SNOMED Code(s): 538494367 Code(s): Z72.0 - TOBACCO USE Status: Chronic Current Visit: Yes - Problem List Review Problem List Initiated/Reviewed/Updated: Yes - My Orders Last 24 Hours: My Active Orders 12/08/20 09:00 amLODIPine [Norvasc] 10 mg PO DAILY - Plan Plan:: This 30-year-old male admitted with acute alcoholic pancreatitis 1. Acute alcoholic pancreatitis -stop IV fluids -Dilaudid and morphine stopped, contstart PO oxycodone for pain control -Protonix daily -Counseling on alcohol sobriety. -advance to soft diet, instructed to eat in small portions -Hyperbilirubinemia and transaminitis improving steadily 2. UTI -dc Rocephin, cultures negative 3. Alcohol abuse, alcoholic hepatitis: -Transaminitis improving -Thiamine, folic acid daily -CIWAA protocol with Ativan as needed VTE prophylaxis: Heparin GI prophylaxis: Protonix CODE STATUS: Full code Dispo: possible dc tomorrow
[2020-12-08] MEDS: Lactated Ringers 1,000 ML IV SCH (15:54)
[2020-12-08] MEDS: Loperamide 2 MG Cap PO PRN (18:49)
[2020-12-08] MEDS: atorvaSTATin 20 MG Tab PO SCH (20:00)
[2020-12-09] MEDS: Acetaminophen 325 MG Tab PO PRN ×2 (00:22→10:03)
[2020-12-09] MEDS: Lactated Ringers 1,000 ML IV SCH (02:05)
[2020-12-09] MEDS: Pantoprazole 40 MG in Sodium Chloride 0.9% 10 ML IV SCH (05:30)
[2020-12-09] MEDS: Heparin Sodium 5,000 Units/ML Vial SUBCUT SCH (05:30)
[2020-12-09 06:14] LABS: BLOOD UREA NITROGEN,BUN 7 mg/dL (7.0-18.0); CARBON DIOXIDE,CO2 21.5 mmol/L (21.0-32.0); CHLORIDE,CL 101 mmol/L (98-107); GLUCOSE RANDOM 80 mg/dL (74-106); POTASSIUM,K 3.4 mmol/L (3.5-5.1); SODIUM,NA 137 mmol/L (136-148)
[2020-12-09] MEDS: oxyCODONE 5 MG Tab PO PRN (06:28)
[2020-12-09] MEDS ORDERED: Potassium Chloride 20 MEQ Tab.ER PO ONE (09:00)
[2020-12-09] MEDS: amLODIPine 5 MG Tab PO SCH (09:51)
[2020-12-09] MEDS: Folic Acid 50 MG/10 ML MDV SUBCUT SCH (09:52)
[2020-12-09] MEDS: Thiamine 100 MG in Sodium Chloride 0.9% 100 ML IV SCH (09:54)
[2020-12-09] MEDS: Loperamide 2 MG Cap PO PRN (10:04)
--- NOTE | 2020-12-09 11:20 | PCM.DCSUM1 ---
Discharge Summary - Hospital Course Free Text/Narrative:: This 30-year-old male with past medical history of opioid addiction, alcohol abuse presented to the ER with history of epigastric pain that started 12/01/2020. He reports that around noon or so he started having significant epigastric pain that radiated to his left chest into his back. He had 3 loose bowel movements prior to this and then had significant nausea and vomiting after. Emesis not black or bloody in color it is yellow in color. He reports h e is never had something like this in the past denies any fevers chills chest pain or shortness of breath. He reports his abdomen is distended and feels quite bloated. He denies any black or bloody bowel movements. He denies any dysuria. He reports that he smokes tobacco at work but then chews at home. He reports he drinks daily drinking anywhere from a pint to a pint and 1/2+ a few beers. He denies alcohol withdrawal seizures and no tremors when he stops drinking. He denies any recreational drug use now. In the ER leukocytosis noted at 19,000 hematocrit 53.3 hemoglobin 19.1 platelets 311,000. Lactic acid elevated at 3.6, repeat 3.2 after IV fluids. Heart rate and blood pressure improved with IV fluid resuscitation. Sodium 135 chloride 96 BUN 5 creatinine 1.3 glucose elevated at 171. Bilirubin 1.8 AST 102 ALT 107 alk phos 115 troponin is negative. Lipid panel added on triglycerides 289 cholesterol total 218 LDL 134 HDL 26. Lipase 5193. Covid swab negative in the ER chest x-ray was obtained which was negative abdominal ultrasound revealed hepatic steatosis pancreas not visualized otherwise exam negative. CT of the abdomen was then obtained which revealed enlarged liver measuring up to 26 cm at the greatest dimension diffuse fatty infiltration. No focal lesion gallbladder unremarkable pancreas shows moderate to severe peripancreatic edema and inflammation no sign of pseudocyst or abscess. No pancreatic lesion otherwise remainder of exam is unremarkable. He was given 2 L normal saline while in the ER along with Dilaudid Protonix cefoxitin. He was admitted inpatient for acute alcoholic pancreatitis and alcoholic transaminitis. Patient also was found to have UTI, for which IV Rocephin was started, patient was started on aggressive IV fluids, IV Zofran, IV Ativan for alcohol withdrawal per CIUDAY and on IV opioids for pain, was kept NPO and later started on clear diet, . Patients bilirubin jumped up on day 2 of admit, likely secondary to ongoing alcoholic hepatitis, patient continued to received supportive care, his liver enzymes slowly started to improve, diet was advanced to soft diet, IV opioids were converted to PO oxycodone. Patient was tolerating diet well, had bowel movements as well. IV Rocephin was stopped as urine culture was negative. Patient was eventually discharged home with short supply of oxycodone for pain, and recommended to fu with PCP upon dc. Diagnosis: Stroke: No - Discharge Data Discharge Date: 12/09/20 Discharge Disposition: Home, Self-Care 01 Condition: Stable - Referral to Home Health Primary Care Physician: PCP None - Discharge Diagnosis/Problem(s) (1) Hepatomegaly SNOMED Code(s): 71051059 ICD Code: R16.0 - HEPATOMEGALY, NOT ELSEWHERE CLASSIFIED Status: Acute (2) Acute alcoholic pancreatitis SNOMED Code(s): 492135135 ICD Code: K85.20 - ALCOHOL INDUCED ACUTE PANCREATITIS WITHOUT NECROSIS OR INFCT Status: Acute (3) Hyperbilirubinemia SNOMED Code(s): 12854552 ICD Code: E80.6 - OTHER DISORDERS OF BILIRUBIN METABOLISM Status: Acute (4) Transaminitis SNOMED Code(s): 157561151, 859461084 ICD Code: R74.01 - ELEVATION OF LEVELS OF LIVER TRANSAMINASE LEVELS Status: Acute (5) Alcohol abuse SNOMED Code(s): 08246572 ICD Code: F10.10 - ALCOHOL ABUSE, UNCOMPLICATED Status: Chronic (6) Tobacco use SNOMED Code(s): 431328280 ICD Code: Z72.0 - TOBACCO USE Status: Chronic - Patient Instructions Diet: GI Soft/Low Residue/Low Fiber Activity: As Tolerated Driving: May Drive Today Showering/Bathing: May Shower Notify Provider of: Fever, Increased Pain, Swelling and Redness, Drainage, Nausea and/or Vomiting - Discharge Plan *PRESCRIPTION DRUG MONITORING PROGRAM REVIEWED*: No *COPY OF PRESCRIPTION DRUG MONITORING REPORT IN PATIENT MELISSA: No Prescriptions/Med Rec: Folic Acid 1 mg SUBCUT DAILY #30 mdv atorvaSTATin [Lipitor] 20 mg PO BEDTIME #30 tablet amLODIPine [Norvasc] 10 mg PO DAILY #30 tablet oxyCODONE 5 mg PO Q8H PRN #15 tablet PRN Reason: Pain Thiamine [Vitamin B-1] 100 mg PO BEDTIME #30 tab Home Medications: Home Meds Folic Acid 1 mg SUBCUT DAILY #30 mdv 12/09/20 [Rx] Thiamine [Vitamin B-1] 100 mg PO BEDTIME #30 tab 12/09/20 [Rx] amLODIPine [Norvasc] 10 mg PO DAILY #30 tablet 12/09/20 [Rx] atorvaSTATin [Lipitor] 20 mg PO BEDTIME #30 tablet 12/09/20 [Rx] oxyCODONE 5 mg PO Q8H PRN #15 tablet 12/09/20 [Rx] Patient Handouts: Chronic Pancreatitis Forms: ED Department Discharge Referrals: Suzanne Maldonado PA [Physician [employer]] - 12/16/20 10:30 am - Discharge Summary/Plan Comment DC Time >30 min.: No - Patient Data Vitals - Most Recent: Last Vital Signs Temp 36.9 C 12/09/20 09:14 Pulse 87 12/09/20 09:14 Resp 16 12/09/20 09:14 BP 133/94 H 12/09/20 09:51 Pulse Ox 97 12/09/20 09:14 Weight - Most Recent: 100.244 kg I&O - Last 24 hours: Intake & Output 12/08/20 12/09/20 12/09/20 22:59 06:59 14:59 Intake Total 1301 2425 Output Total 1275 1200 Balance 26 1225 Lab Results - Last 24 hrs: Laboratory Results - last 24 hr 12/09/20 12/09/20 Range/Units 05:20 05:20 WBC 8.97 (4.0-11.0) K/uL RBC 3.82 L (4.50-5.90) M/uL Hgb 14.0 (13.0-17.0) g/dL Hct 41.1 (38.0-50.0) % MCV 107.6 H (80.0-98.0) fL MCH 36.6 H (27.0-32.0) pg MCHC 34.1 (31.0-37.0) g/dL RDW Std Deviation 55.7 (28.0-62.0) fl RDW Coeff of Kristina 14 (11.0-15.0) % Plt Count 319 (150-400) K/uL MPV 11.10 (7.40-12.00) fL Neut % (Auto) 61.9 (48.0-80.0) % Lymph % (Auto) 20.3 (16.0-40.0) % [place] % (Auto) 12.9 (0.0-15.0) % Eos % (Auto) 4.2 (0.0-7.0) % Baso % (Auto) 0.7 (0.0-1.5) % Neut # (Auto) 5.6 (1.4-5.7) K/uL Lymph # (Auto) 1.8 (0.6-2.4) K/uL [place] # (Auto) 1.2 H (0.0-0.8) K/uL Eos # (Auto) 0.4 (0.0-0.7) K/uL Baso # (Auto) 0.1 (0.0-0.1) K/uL Nucleated RBC % 0.0 /100WBC Nucleated RBCs # 0 K/uL Sodium 137 (136-148) mmol/L Potassium 3.4 L (3.5-5.1) mmol/L Chloride 101 (98-107) mmol/L Carbon Dioxide 21.5 (21.0-32.0) mmol/L BUN 7 (7.0-18.0) mg/dL Creatinine 0.8 (0.8-1.3) mg/dL Est Cr Clr Drug Dosing 132.56 mL/min Estimated GFR (MDRD) > 60.0 ml/min Glucose 80 (74-106) mg/dL Calcium 9.1 (8.5-10.1) mg/dL Magnesium 2.2 (1.8-2.4) mg/dL Total Bilirubin 0.9 (0.2-1.0) mg/dL AST 52 H (15-37) IU/L ALT 39 (14-63) IU/L Alkaline Phosphatase 82 (46-116) U/L Total Protein 7.0 (6.4-8.2) g/dL Albumin 2.6 L (3.4-5.0) g/dL Globulin 4.4 H (2.6-4.0) g/dL Albumin/Globulin Ratio 0.6 L (0.9-1.6) CASSIUS Results - Last 24 hrs: Microbiology 12/08/20 15:30 C. difficile Antigen & Toxins A,B - Final Stool / Feces - Stool, Liquid Med Orders - Current: Current Medications Acetaminophen (Acetaminophen 325 Mg Tab) 650 mg PO Q6H PRN PRN Reason: Pain Last Admin: 12/09/20 10:03 Dose: 650 mg Documented by: Amlodipine Besylate (Amlodipine 5 Mg Tab) 10 mg PO DAILY [facility] Last Admin: 12/09/20 09:51 Dose: 10 mg Documented by: Atorvastatin Calcium (Atorvastatin 20 Mg Tab) 20 mg PO BEDTIME [facility] Last Admin: 12/08/20 20:00 Dose: 20 mg Documented by: Folic Acid (Folic Acid 50 Mg/10 Ml Mdv) 1 mg SUBCUT DAILY [facility] Last Admin: 12/09/20 09:52 Dose: 1 mg Documented by: Heparin Sodium (Porcine) (Heparin Sodium 5,000 Units/Ml Vial) 5,000 units SUBC UT Q8H [facility] Last Admin: 12/09/20 05:30 Dose: 5,000 units Documented by: Pantoprazole Sodium 40 mg/ (Sodium Chloride) 10 mls @ 300 mls/hr IV Q24H [facility] Last Admin: 12/09/20 05:30 Dose: 300 mls/hr Documented by: Thiamine HCl 100 mg/ Sodium (Chloride) 101 mls @ 202 mls/hr IV DAILY [facility] Last Admin: 12/09/20 09:54 Dose: 202 mls/hr Documented by: Lactated Ringer's (Ringers, Lactated) 1,000 mls @ 100 mls/hr IV ASDIRECTED [facility] Last Admin: 12/09/20 02:05 Dose: 100 mls/hr Documented by: Loperamide HCl (Loperamide 2 Mg Cap) 2 mg PO Q12H PRN PRN Reason: Diarrhea Last Admin: 12/09/20 10:04 Dose: 2 mg Documented by: Lorazepam (Lorazepam 2 Mg/Ml Sdv) 0 mg IVPUSH Q2H PRN; Protocol PRN Reason: CIWAA Last Admin: 12/06/20 18:43 Dose: 1 mg Documented by: Ondansetron HCl (Ondansetron 4 Mg/2 Ml Sdv) 4 mg IVPUSH Q4H PRN PRN Reason: Nausea Last Admin: 12/06/20 12:52 Dose: 4 mg Documented by: Oxycodone HCl (Oxycodone 5 Mg Tab) 5 mg PO Q8H PRN PRN Reason: Pain Last Admin: 12/09/20 06:28 Dose: 5 mg Documented by: Sodium Chloride (Sodium Chloride 0.9% 2.5 Ml Syringe) 2.5 ml FLUSH ASDIRECTED PRN PRN Reason: Keep Vein Open Last Admin: 12/06/20 12:53 Dose: 2.5 ml Documented by: Discontinued Medications Amlodipine Besylate (Amlodipine 5 Mg Tab) 5 mg PO DAILY [facility] Last Admin: 12/07/20 08:36 Dose: 5 mg Documented by: Hydromorphone HCl (Hydromorphone 1 Mg/Ml Syringe) 1 mg IVPUSH ONETIME ONE Stop: 12/02/20 05:53 Last Admin: 12/02/20 05:57 Dose: 1 mg Documented by: Hydromorphone HCl (Hydromorphone 1 Mg/Ml Syringe) 1 mg IVPUSH ONETIME ONE Stop: 12/02/20 07:40 Last Admin: 12/02/20 07:54 Dose: 1 mg Documented by: Hydromorphone HCl (Hydromorphone 1 Mg/Ml Syringe) 1 mg IVPUSH Q2H PRN PRN Reason: Pain Last Admin: 12/02/20 12:22 Dose: 1 mg Documented by: Hydromorphone HCl (Hydromorphone 1 Mg/Ml Syringe) 1 mg IVPUSH ONETIME ONE Stop: 12/02/20 13:36 Last Admin: 12/02/20 13:54 Dose: 1 mg Documented by: Hydromorphone HCl (Hydromorphone 2 Mg/Ml Syringe) 2 mg IVPUSH Q2H PRN PRN Reason: Pain Last Admin: 12/06/20 08:49 Dose: 2 mg Documented by: Pantoprazole Sodium 40 mg/ (Sodium Chloride) 10 mls @ 300 mls/hr IV NOW ONE Stop: 12/02/20 04:58 Last Admin: 12/02/20 05:06 Dose: 300 mls/hr Documented by: Cefoxitin Sodium 2 gm/ Sodium (Chloride) 100 mls @ 200 mls/hr IV ONETIME ONE Stop: 12/02/20 06:10 Last Admin: 12/02/20 05:46 Dose: Not Given Documented by: Sodium Chloride (Normal Saline) 1,000 mls @ 1,000 mls/hr IV .Bolus ONE Stop: 12/02/20 06:41 Last Admin: 12/02/20 05:53 Dose: 1,000 mls/hr Documented by: Cefoxitin Sodium 2 gm/ Premix 50 mls @ 100 mls/hr IV ONETIME ONE Stop: 12/02/20 06:15 Last Admin: 12/02/20 05:54 Dose: 100 mls/hr Documented by: Sodium Chloride (Normal Saline) 1,000 mls @ 1,000 mls/hr IV .Bolus ONE Stop: 12/02/20 07:42 Last Admin: 12/02/20 07:54 Dose: 1,000 mls/hr Documented by: Lactated Ringer's (Ringers, Lactated) 1,000 mls @ 999 mls/hr IV .BOLUS ONE Stop: 12/02/20 10:46 Last Admin: 12/02/20 10:09 Dose: 999 mls/hr Documented by: Lactated Ringer's (Ringers, Lactated) 1,000 mls @ 999 mls/hr IV .BOLUS ONE Stop: 12/02/20 11:10 Last Admin: 12/02/20 11:16 Dose: 999 mls/hr Documented by: Lactated Ringer's (Ringers, Lactated) 1,000 mls @ 200 mls/hr IV Q5H [facility] Last Admin: 12/04/20 08:36 Dose: Not Given Documented by: Magnesium Sulfate (Magnesium Sulfate In Water 2 Gm/50 Ml) 2 gm in 50 mls @ 50 mls/hr IV ONETIME ONE Stop: 12/03/20 11:44 Last Admin: 12/03/20 10:54 Dose: 50 mls/hr Documented by: Ceftriaxone Sodium 1 gm/ (Sodium Chloride) 50 mls @ 100 mls/hr IV Q24H [facility] Ceftriaxone Sodium/Dextrose 1 (gm/ Premix) 50 mls @ 100 mls/hr IV Q24H [facility] Last Admin: 12/07/20 18:39 Dose: 100 mls/hr Documented by: Sodium Phosphate 30 mmole/ (Sodium Chloride) 260 mls @ 62 mls/hr IV ONETIME ONE Stop: 12/04/20 13:11 Last Admin: 12/04/20 10:26 Dose: 62 mls/hr Documented by: Lactated Ringer's (Ringers, Lactated) 1,000 mls @ 200 mls/hr IV ASDIRECTED [facility] Last Admin: 12/07/20 08:50 Dose: 200 mls/hr Documented by: Sodium Phosphate 30 mmole/ (Sodium Chloride) 260 mls @ 62 mls/hr IV ONETIME ONE Stop: 12/05/20 16:41 Last Admin: 12/05/20 13:48 Dose: 62 mls/hr Documented by: Potassium Chloride/Sodium Chloride (Normal Saline With 20 Meq Kcl) 1,000 mls @ 500 mls/hr IV ONETIME [facility] Last Admin: 12/06/20 12:19 Dose: 500 mls/hr Documented by: Iopamidol (Iopamidol 755 Mg/Ml 500 Ml Multipack Bottle) 100 ml IVPUSH ONETIME STA Stop: 12/02/20 07:46 Last Admin: 12/02/20 07:55 Dose: 100 ml Documented by: Magnesium Sulfate (Magnesium Sulfate/Water 2 Gm/50 Ml Premix Bag) 2 gm IV ONETIME ONE Stop: 12/03/20 19:22 Last Admin: 12/03/20 20:12 Dose: 2 gm Documented by: Morphine Sulfate (Morphine 2 Mg/Ml Syringe) 2 mg IVPUSH Q4H PRN PRN Reason: Pain (severe 7-10) Last Admin: 12/07/20 09:35 Dose: 2 mg Documented by: Ondansetron HCl (Ondansetron 4 Mg/2 Ml Sdv) 4 mg IVPUSH ONETIME ONE Stop: 12/02/20 04:58 Last Admin: 12/02/20 05:05 Dose: 4 mg Documented by: Ondansetron HCl (Ondansetron 4 Mg/2 Ml Sdv) 4 mg IVPUSH ONETIME ONE Stop: 12/02/20 05:53 Last Admin: 12/02/20 06:47 Dose: Not Given Documented by: Potassium Chloride (Potassium Chloride 20 Meq Tab.Er) 40 meq PO ONETIME ONE Stop: 12/07/20 10:38 Last Admin: 12/07/20 11:56 Dose: 40 meq Documented by: Potassium Chloride (Potassium Chloride 20 Meq Tab.Er) 40 meq PO ONETIME ONE Stop: 12/08/20 09:31 Last Admin: 12/08/20 09:46 Dose: 40 meq Documented by: Potassium Chloride (Potassium Chloride 20 Meq Tab.Er) 40 meq PO ONETIME ONE Stop: 12/09/20 09:01 Last Admin: 12/09/20 09:50 Dose: 40 meq Documented by: Sodium Chloride (Sodium Chloride 0.9% 10 Ml Syringe) 10 ml FLUSH ASDIRECTED PRN PRN Reason: Keep Vein Open Last Admin: 12/02/20 07:55 Dose: 10 ml Documented by: Sodium Chloride (Sodium Chloride 0.9% 2.5 Ml Syringe) 2.5 ml FLUSH ASDIRECTED PRN PRN Reason: Keep Vein Open Last Admin: 12/02/20 07:55 Dose: 2.5 ml Documented by:
== END 2020-12-09 12:49 | disposition home or self-care (01) | DRG 439 ==
LOC: MW.ED 04:36 → MW.MS 06:48
PROVIDERS: ADMIT Internal Medicine; ATTEND Internal Medicine
DX: K85.20 Alcohol induced acute pancreatitis without necrosis or infection (principal); F10.188 Alcohol abuse with other alcohol-induced disorder; N39.0 Urinary tract infection, site not specified; R16.0 Hepatomegaly, not elsewhere classified; E80.6 Other disorders of bilirubin metabolism; R74.01 Elevation of levels of liver transaminase levels; Z20.822 Contact with and (suspected) exposure to COVID-19; E66.9 Obesity, unspecified; F17.210 Nicotine dependence, cigarettes, uncomplicated; K70.10 Alcoholic hepatitis without ascites; I10 Essential (primary) hypertension; E83.39 Other disorders of phosphorus metabolism; Z68.32 Body mass index [BMI] 32.0-32.9, adult
CPT/HCPCS: 36415; 71045; 71045-26; 74177; 74177-26; 76705; 76705-26; 80048; 80053; 80061; 81001; 83036; 83605; 83690; 83735; 84100; 84439; 84443; 84484; 85025; 87040; 87086; 87324; 93005; 93010; 96374; 96375; 97802; 99284; 99285-25; A9270-GY; C9113; J0694; J0696; J1170; J1644; J2060; J2270; J2405; J3411; J3475; J3480; J7030; J7050; J7120; Q9967; U0002